=== PATIENT | male | born 1950 | race Caucasian/White ===

== ENCOUNTER → 2016-06-09 | Outpatient (CLI) | payer MEDICARE ==
--- NOTE | 2016-06-09 20:35 | PN ---
This patient is 65 who is coming in for a CPAP compliancy check. The patient was diagnosed having severe JAMES with an AHI of 52 and currently he is on CPAP pressure of 11 cm of water. The patient undergone a right knee surgery that was done by Dr. Chance Elizabeth and at one point there was some interruption of his CPAP therapy while the patient having his surgery. After being discharged home, the patient improved his compliance CPAP therapy, however, the segments that are sent from the CPAP machine has not been intercepted by the DME due to poor signal and poor transmission. As such, the patient has been constantly being called by DME that his use has been suboptimal. I did check the patient's CPAP machine, his compliancy data looks good. His CPAP use for more than 4 hours approaching 66%. He is averaging around 6.25 hours of CPAP use every night. His leak factor is 22 liters per minute; however, his AHI while on treatment is around 20 and I noted that the patient was still having some occasional hypopneas. Still while being treated on a CPAP pressure of 11 cm of water. Clinically the patient is doing much better. He reports marked improvement in his sleep quality and is waking up much more alert and awake during the day and he has no specific complaints. He has been switched from Simplus fullface mask to an air fit F10 mask. He has no other complaints otherwise for now. He wanted me to talk to his DME to make sure that they get data regarding his compliance. His [place] score is down to 2. BP is 160/94, pulse 60, respirations 16, temperature is 98.1. Weight is 305. [place] score is at 2, saturation 97% on room air. GENERAL APPEARANCE: Calm, comfortable. HEENT: Short neck, crowding posterior pharynx. There is no goiter, neck masses. LUNGS: Diminished breath sounds; otherwise clear. HEART: Sounds are regular rate and rhythm. Normal S1, S2. ABDOMEN: Soft, nontender, no organomegaly. EXTREMITIES: No edema. No cyanosis, or clubbing. IMPRESSION: 1. Severe symptomatic obstructive sleep apnea, apnea-hypopnea index of 52 with adequate compliancy while being on a CPAP pressure of 11 cm of water. Nevertheless, the patient has some residual hypopneas occurring while on CPAP pressure of 11 cm and the pressure needs to be increased further to optimize his treatment. 2. Status post right knee replacement. 3. Hypersomnia, improved. [place] score is down to 2. PLAN: 1. Increase in CPAP pressure of 12 cm of water. 2. Continue AirFit F10 fullface mask. 3. Encouraging increasing CPAP hours and use every night without any interruption. 4. One final check will be done in 4 months' time and the data will be forwarded to [facility] and the patient is adequate and he has been receiving adequate CPAP therapy for now.
== END | disposition home or self-care (01) ==
LOC: SLEEP 16:03
PROVIDERS: ATTEND Internal Medicine Critical Care Medicine
DX: G47.33 Obstructive sleep apnea (adult) (pediatric) (principal); G47.10 Hypersomnia, unspecified; Z96.651 Presence of right artificial knee joint; Z99.89 Dependence on other enabling machines and devices

== ENCOUNTER → 2016-10-06 | Outpatient (CLI) | payer MEDICARE ==
--- NOTE | 2016-10-07 06:08 | PN ---
This is a 66-year-old male patient who is coming in for a CPAP compliancy check. Note that the patient was diagnosed having severe JAMES with an AHI of 52 and he was initially placed on a CPAP pressure of 11 cm of water. The patient came in for a compliancy in May of 2016. At that time, the patient was having some residual apneas and his AHI was still around 20. He was compliant. He was seeing adequate benefit, however, the benefit was not complete. Based on all this, I increased the pressure up to 12 cm of water. On today's evaluation, the patient is much more compliant and his CPAP use for more than 4 hours is 100% and his average CPAP use is 10.9 hours per night and patient's AHI is down to 1.8. The patient is using an AirFit F10 full face mask. The patient has no complaints other than some chronic vertigo, which seems to be a benign positional vertigo. He is using an AirFit F10 full face mask. He is doing extremely well. No weight gain or weight loss. [place] score is down to 2. CURRENT VITALS: BP 170/92, pulse is 80, respirations 16, temperature 97.2 and saturation 96% on room air. Weight 325. Height is 6 feet 1 inch. BMI is 42.5. GENERAL APPEARANCE: Obese, calm, comfortable. HEENT: Short neck, crowding posterior pharynx. There is no goiter or neck masses. LUNGS: Diminished breath sounds bilaterally, otherwise, clear. HEART: Sounds regular rate and rhythm. Normal S1, S2. No S3. No murmurs. ABDOMEN: Soft, nontender. No organomegaly. EXTREMITIES: No edema. No cyanosis or clubbing. IMPRESSION: 1. Symptomatic obstructive sleep apnea, severe, with an AHI of 52. The patient is undergoing successful therapy with a CPAP pressure of 12 cm of water. 2. Hypersomnia, improved. 3. Benign positional vertigo. 4. Degenerative arthritis, status post right knee replacement. PLAN: 1. Continue CPAP therapy at the same level of pressure, which is 12 cm of water. 2. AirFit F10 full face mask. 3. Compliance data was reviewed and numbers look great, clinically improved. 4. The patient will see me back in followup in a years time or earlier if needed. CARL
== END ==
LOC: SLEEP 13:32
PROVIDERS: ATTEND Internal Medicine Critical Care Medicine
DX: G47.33 Obstructive sleep apnea (adult) (pediatric) (principal); G47.10 Hypersomnia, unspecified; M17.11 Unilateral primary osteoarthritis, right knee; Z96.651 Presence of right artificial knee joint

== ENCOUNTER → 2018-02-22 | Outpatient (CLI) | payer MEDICARE ==
--- NOTE | 2018-02-22 18:50 | PN ---
PROGRESS NOTE Herrera is 67, coming in for a followup regarding his JAMES treatment. Note that this patient was diagnosed having severe obstructive sleep apnea an AHI of 52. The patient has been on CPAP therapy at a pressure of 12 cm of water. Since his last evaluation the patient has gained further weight. He has gained approximately an additional 12 pounds. Note that since his time of diagnosis he is up by around pounds. Nevertheless, his treatment continues to be successful. He wears his CPAP every night at the pressure of 12. He is using the large full-face mask. His compliance indicates that he has been wearing his CPAP every night without any interruption. CPAP use for more than 4 hours is 100%. Leak factor is per minute. AHI is down to 7 while on treatment. He has no specific complaints. He continues to benefit from the treatment. REVIEW OF SYSTEMS: Twelve-point review of systems was done. Positive findings were all mentioned above in the history of present illness. PHYSICAL EXAMINATION: BP is 179/87, pulse GENERAL APPEARANCE: Calm, comfortable. NECK: Short, supple. No goiter or masses. LUNGS: HEART: Heart sounds are regular rate and rhythm. Normal S1, S2. No S3, S4. No murmurs. ABDOMEN: Soft, non-tender. No organomegaly. NEUROLOGIC: Alert and oriented x3. No focal neurological deficits. IMPRESSION: 1. Severe obstructive sleep apnea; apnea/hypopnea index of 52, currently on CPAP at a pressure of 12. 2. Obesity with interval weight gain. BMI is up to 47 with a weight of 337. 3. Hypersomnia, recovered while on CPAP therapy. The patient continues to be successfully treated, and his [place] score is down to 1. 4. Benign positional vertigo. 5. Degenerative arthritis. PLAN: 1. Keep CPAP at the same level of pressure of 12 with the intention of raising the pressure if he develops any snoring or hypersomnia in the future. 2. Encourage weight loss. 3. Keep the same mask interface, which is an AirFit F10 full-face mask. 4. Compliance was checked. See me back in a year's time in followup, earlier if needed. 5. Treatment continues to be successful. MMODL / IJN: [id number] /
== END | disposition home or self-care (01) ==
LOC: SLEEP 15:31
PROVIDERS: ATTEND Internal Medicine Critical Care Medicine
DX: G47.33 Obstructive sleep apnea (adult) (pediatric) (principal); E66.9 Obesity, unspecified; M19.90 Unspecified osteoarthritis, unspecified site; H81.10 Benign paroxysmal vertigo, unspecified ear; Z68.42 Body mass index [BMI] 45.0-49.9, adult; Z99.89 Dependence on other enabling machines and devices

== ENCOUNTER → 2018-03-30 | Outpatient (CLI) | payer MEDICARE ==
--- NOTE | 2018-03-31 07:23 | US ---
EXAMINATION TYPE: US abdomen comp/pelvis limited DATE OF EXAM: 03/30/2018 COMPARISON: NONE CLINICAL HISTORY: R31.9 Hematuria, N20.2 Calculus of Kidney. Right pelvic kidney. Hematuria. RUQ pa in. EXAM MEASUREMENTS: Liver Length: 18.4 cm Gallbladder Wall: 0.2 cm CHD: 0.5 cm Spleen: 9.4 cm Right Kidney: 8.7 x 3.6 x 4.1 cm Left Kidney: 12.4 x 4.9 x 5.7 cm Limited exam due to patient body habitus Pancreas: Tail not well visualized. Liver: Appears course and echogenic. Slightly enlarged in size. Gallbladder: wnl CBD: Obscured by overlying bowel gas CHD: wnl Spleen: wnl Right Kidney: Pelvic kidney. Appears small in size and appears rotated. Lower pole echogenic focus with shadow - 1.6 x 1.3 cm. Hydronephrosis seen. Left Kidney: Cystic appearing lesion seen in lower pole sinus - 1.9 x 1.9 x 1.7 cm Upper IVC: wnl Abd Aorta: proximal not visualized due to overlying bowel gas Bladder: distended, wnl Bilateral Jets Seen IMPRESSION: 1. Mild right hydronephrosis and 1.6 cm right renal calculus appearing to be located within a major c roselyn or proximal renal pelvis. 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 2. Probable renal sinus cyst measuring 1.9 cm. 3. Suboptimal exam due to patient body habitus with obscuration of the majority of the pancreas, prox imal aspect of the abdominal aorta, and common bile duct. Common hepatic duct is within normal limits . 4. Findings suggest mild degree hepatic steatosis. Correlate with liver function tests.
== END | disposition home or self-care (01) ==
LOC: RADUSWWP 15:28
PROVIDERS: ATTEND Family Medicine
DX: N13.2 Hydronephrosis with renal and ureteral calculous obstruction (principal)
CPT/HCPCS: 76700; 76857

== ENCOUNTER → 2018-05-04 | Outpatient (CLI) | payer MEDICARE ==
--- NOTE | 2018-05-04 17:02 | CT ---
EXAMINATION TYPE: CT abdomen pelvis wo con DATE OF EXAM: 05/04/2018 COMPARISON: Ultrasound abdomen 03/30/2018 INDICATION: Right flank pain. History of renal stones. DLP: 1192 mGycm, Automated exposure control for dose reduction was used. CONTRAST: None Study performed without Oral Contrast TECHNIQUE: Axial images were obtained from above the diaphragm to the pubic rami in the axial plane a t 5 mm thick sections. Reconstructed images are reviewed on the computer in the coronal plane. FINDINGS: Limited CT sections are obtained the lung bases. The lung bases are clear. CT ABDOMEN: Liver: There is moderate fatty infiltration throughout the liver. Spleen: Normal Pancreas: Normal Adrenal glands: The adrenal glands are normal. Gallbladder: Normal Kidneys: Left kidney: No masses are evident. No hydronephrosis is present. No cysts are present. Right kidney: Right kidney resides within the anterior right hemipelvis and is malpositioning malrota tion. There is a 1.3 cm calcification without obstruction within the right kidney. Aorta: Vascular calcification is within the aorta. Inferior vena cava: Normal. CT PELVIS: Fat-containing left inguinal hernia may be present. Loops of bowel within the abdomen and pelvis are normal. Study is performed without oral contrast limiting bowel evaluation. Appendix: Normal as visualized. Urinary bladder: Decompressed with limited evaluation. Genitourinary structures: Prostate is slightly prominent with scattered calcifications. Osseous structures: No suspicious lytic or sclerotic lesions. IMPRESSIONS: 1. Malpositioned right kidney within the right hemipelvis containing a nonobstructing 1.3 cm calcifi cation. 2. Left inguinal fat-containing hernia. 3. Moderate fatty infiltration to the liver.
== END | disposition home or self-care (01) ==
LOC: RADCTMAIN 14:07
PROVIDERS: ATTEND Urology
DX: N28.89 Other specified disorders of kidney and ureter (principal); I70.0 Atherosclerosis of aorta; K40.90 Unilateral inguinal hernia, without obstruction or gangrene, not specified as recurrent; R31.1 Benign essential microscopic hematuria; K76.0 Fatty (change of) liver, not elsewhere classified; Z87.442 Personal history of urinary calculi
CPT/HCPCS: 74176

== ENCOUNTER 2019-01-24 06:40 | Day surgery (SDC) | payer MEDICARE ==
[2019-01-20 11:36] VITALS: BMI 42.8
[~2019-01-24 06:40] MED LIST: LACTATED RINGERS 1,000 ML IV SCH; LIDOCAINE 1% 20 ML VIAL (10MG/ML) FOR IV START INTRADERMA PRN
[2019-01-24 07:17] VITALS: TEMP 98
[2019-01-24] MEDS ORDERED: PROPOFOL 10 MG/ML 20 ML VIAL IV ONE (07:34)
--- NOTE | 2019-01-24 08:03 | P.PCN ---
Date of Procedure: 01/24/19 Description of Procedure: BRIEF HISTORY: Patient is a 68-year-old pleasant male scheduled for an elective colonoscopy as a part of screening for malignant neoplasm colon. Patient reports prior colonoscopies at the age of 48 and also please 58 which she states were normal. His recollection. He denies any change in his bowel habits, blood per rectum, abdominal pain or family history of colon cancer. PROCEDURE PERFORMED: Colonoscopy with polypectomy. PREOPERATIVE DIAGNOSIS: Screening for malignant neoplasm colon, last colonoscopy 10 years ago per his recollection and normal. ESTIMATED BLOOD LOSS: Minimal. IV sedation per Anesthesia. PROCEDURE: After informed consent was obtained, the patient, was brought into the endoscopy unit. IV sedation was administered by Anesthesia under continuous monitoring. Digital rectal examination was normal. Initially the Olympus CF-190 flexible video colonoscope was then inserted in the rectum, gradually advanced into the cecum without any difficulty. Careful examination was performed as the scope was gradually being withdrawn. Ileocecal valve and the appendiceal orifice were visualized and appeared normal. Prep was excellent. Mucosa of the cecum, ascending colon, transverse colon, descending colon, sigmoid colon, and rectum appeared normal. One diminutive 2 mm polyp removed from the ascending colon with cold forcep polypectomy. One diminutive 1 mm rectal polyp removed with cold forcep polypectomy. A few small sigmoid diverticula noted. Retroflexion was performed in the rectum and no lesions were seen. The patient tolerated the procedure well. IMPRESSION: 2 diminutive polyps one from the ascending colon and one from the rectum removed with cold forcep polypectomy. Mild sigmoid diverticulosis. Normal-appearing colon from rectum to cecum. RECOMMENDATIONS: Findings of this examination were discussed with the patient and his . Okay to resume diet. Okay to resume medications. Await pathology from polypectomies. Anticipate repeat colonoscopy in 5 years pending pathology from polypectomies.
[2019-01-24 08:04] VITALS: RESP 18
[2019-01-24 08:20] VITALS: BP 134/76; PULSE 76
== END 2019-01-24 08:33 | disposition home or self-care (01) ==
LOC: ORWHC2ENDO 06:40
PROVIDERS: ATTEND Internal Medicine
DX: Z12.11 Encounter for screening for malignant neoplasm of colon (principal); D12.2 Benign neoplasm of ascending colon; K62.1 Rectal polyp; K57.30 Diverticulosis of large intestine without perforation or abscess without bleeding; I10 Essential (primary) hypertension; G47.33 Obstructive sleep apnea (adult) (pediatric); K21.9 Gastro-esophageal reflux disease without esophagitis; Z88.8 Allergy status to other drugs, medicaments and biological substances; Z79.899 Other long term (current) drug therapy; Z96.651 Presence of right artificial knee joint; Z90.89 Acquired absence of other organs; Z98.890 Other specified postprocedural states; Z87.891 Personal history of nicotine dependence; Z87.81 Personal history of (healed) traumatic fracture
CPT/HCPCS: 88305; 45380; J2704

== ENCOUNTER → 2019-01-31 | Outpatient (CLI) | payer MEDICARE ==
--- NOTE | 2019-01-31 19:33 | PN ---
PROGRESS NOTE Herrera is 68 with severe JAMES with an AHI of 52, currently on CPAP pressure of 12, and the patient is using an AirTouch F20 large-size full-face mask. He continues to benefit from the treatment. His treatment is extremity successful. His AHI is down to 4.2 while on treatment, and based on the compliance data, the patient has been averaging around 11.7 hours of CPAP use per night with a leak of 8 L/minute, and his CPAP use for more than 4 hours is 100%. His [place] score is 0. REVIEW OF SYSTEMS: Fourteen-point review of systems was done. Positive findings were all mentioned above in the history of present illness. PHYSICAL EXAMINATION: VITAL SIGNS: His current vitals are BP 160/80, pulse 51, respirations 16, temperature 97.4, saturation 93% on room air. Height is 6 feet 0 inches. Weight is 328 pounds. [place] score is 0. BMI is 44.4. GENERAL APPEARANCE: Calm, comfortable. HEAD: Atraumatic, normocephalic. NECK: Supple. No JVD. No goiter or neck masses. LUNGS: Clear to auscultation. HEART: Heart sounds are regular rate and rhythm. Normal S1, S2. No S3, S4. No murmurs. ABDOMEN: Soft, nontender. No organomegaly. EXTREMITIES: No edema. No cyanosis or clubbing. NEUROLOGIC: Awake and alert. There are no focal neurological deficits. PSYCHIATRIC: Negative for anxiety or depression. IMPRESSION: 1. Severe obstructive sleep apnea with an apnea/hypopnea index of 52, currently on CPAP pressure of 12. The patient continues to be extremely successful with his treatment. No need for any further adjustment at this point in time. 2. Obesity. 3. Hypersomnia, improved. 4. Benign prostatic hypertrophy. 5. Degenerative arthritis. PLAN: 1. Encourage weight loss. 2. Continue CPAP therapy at the same level of pressure, which is 12. 3. Keep the same mask interface, which is an AirTouch large size. 4. See me back in a year's time in followup, earlier if needed. MMODL / IJN: [id number] /
== END | disposition home or self-care (01) ==
LOC: SLEEP 14:06
PROVIDERS: ATTEND Internal Medicine Critical Care Medicine
DX: G47.33 Obstructive sleep apnea (adult) (pediatric) (principal); E66.9 Obesity, unspecified; N40.0 Benign prostatic hyperplasia without lower urinary tract symptoms; M19.90 Unspecified osteoarthritis, unspecified site; Z68.41 Body mass index [BMI] 40.0-44.9, adult

== ENCOUNTER → 2019-05-05 | Outpatient (CLI) | payer MEDICARE ==
--- NOTE | 2019-05-06 18:43 | XR ---
EXAMINATION TYPE: XR thoracic spine complete DATE OF EXAM: 05/05/2019 CLINICAL HISTORY: Mid back pain with no known injury TECHNIQUE: Frontal, lateral, and swimmer's view of thoracic spine are obtained. COMPARISON: None. FINDINGS: Thoracic spine show satisfactory alignment without evidence of acute fracture or dislocatio n. Bridging anterior osteophytes are seen of the midthoracic spine with smaller osteophytes of the l ower thoracic spine. Vertebral body heights and disc space heights are preserved. Visualized ribs are unremarkable. Cervical fusion device is visualized. IMPRESSION: No acute fracture or dislocation is seen in the thoracic spine. Moderate degenerative di sc disease of the lumbar spine as there are bridging anterior osteophytes.
== END | disposition home or self-care (01) ==
LOC: RAD 16:16
PROVIDERS: ATTEND Family Medicine
DX: M51.36 Other intervertebral disc degeneration, lumbar region (principal)
CPT/HCPCS: 72072

== ENCOUNTER → 2019-10-09 | Outpatient (CLI) | payer MEDICARE ==
--- NOTE | 2019-10-09 14:31 | P.HPBAR ---
Bariatric H&P - History & Physicial H&P Date: 10/09/19 History & Physicial: Visit/CC: Patient initial contact: Initial weight: Initial weight in pounds: Height: Initial BMI: Last weight: Current weight: Current weight in pounds: 365 Current BMI: [place] body weight (based on NIH guidelines): Excess body weight loss: The patient is a 69 year-old M who presents for Bariatric Assessment. Patient presents today for presurgical consultation. Past Medical History Past Medical History: Hypertension, Renal Disease, Sleep Apnea/CPAP/BIPAP Additional Past Medical History / Comment(s): Currently has cast on left hand due to middle finger fracture. Uses CPAP. Hx kidney stone. 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 Past Anesthesia/Blood Transfusion Reactions: No Reported Reaction Past Psychological History: Anxiety Smoking Status: Former smoker Past Alcohol Use History: None Reported Additional Past Alcohol Use History / Comment(s): Quit smoking 32 years ago. Past Drug Use History: None Reported - Past Family History Sister(s) Family Medical History: Cancer Additional Family Medical History / Comment(s): Breast cancer. Surgical - Exam - General well developed, well nourished, no distress - Eyes PERRL - ENT normal pinna - Neck no masses - Respiratory normal expansion - Cardiovascular Rhythm: regular - Abdomen Abdomen: soft, non tender Bariatric Assessment & Plan Plan: RBC. Patient is an excellent understanding sleeve gastrectomy. We went over the risks and benefits of procedure including injury to the stomach, liver and spleen. She is also aware the risk of gastric staple line bleeding, scarring in perforation. The patient will be scheduled for EGD. He'll follow-up after this has been performed. Bariatric Checklist Checklist: Plan: Checklist: EGD: 1. Hiatal hernia: 2. H. Pylori: HgbA1c: Vitamin D: Smoking: Former smoker Primary care physician referral: Psychiatry clearance: Cardiology clearance: Sleep study: Diet journal: VTE risk score: VTE risk level: Rehab needs at discharge:
[2019-10-09 15:58] LABS: HCT 45.1 % (39.0-53.0); HGB 14.9 gm/dL (13.0-17.5); MCH 34.9 pg (25.0-35.0); MCHC 33.1 g/dL (31.0-37.0); MCV 105.6 fL (80.0-100.0); Macrocytosis Moderate; Mean Platelet Volume 8.2; Platelet Count 171 k/uL (150-450); RBC 4.27 m/uL (4.30-5.90); RDW 13.9 % (11.5-15.5); WBC 7.4 k/uL (3.8-10.6)
[2019-10-10 01:17] LABS: Hemoglobin A1C 6.2 % (4.0-6.0)
[2019-10-10 02:15] LABS: ALT 92 U/L (10-49); AST 76 U/L (14-35); African American GFR (CKD) 77.9 (60.0-200.0); Albumin/Globulin Ratio 1.33 (1.60-3.17); Alkaline Phosphatase 75 U/L (41-126); BUN/Creat Ratio 17.27 Ratio (12.00-20.00); Calcium 9.2 mg/dL (8.7-10.3); Carbon Dioxide 25.9 mmol/L (21.6-31.8); Chloride 106 mmol/L (96-109); Folate, Serum >24.0 ng/mL; Glucose 110 mg/dL (70-110); Non-African American GFR(CKD) 67.2 (60.0-200.0); Potassium 5.4 mmol/L (3.5-5.5); Sodium 141 mmol/L (135-145); Total Bilirubin 0.5 mg/dL (0.2-1.2)
[2019-10-12 08:46] VITALS: BP 176/99; PULSE 57; TEMP 97.7; BMI 34.9
== END | disposition home or self-care (01) ==
LOC: BARWHC3 13:55
PROVIDERS: ATTEND Surgery
DX: Z01.812 Encounter for preprocedural laboratory examination (principal); E88.81 Metabolic syndrome and other insulin resistance; E55.9 Vitamin D deficiency, unspecified
CPT/HCPCS: 84425; 80053; 82607; 82746; 85027; 82306; 83036; 93005; 36415; G0463; 99211

== ENCOUNTER → 2019-11-03 | Day surgery (SDC) | payer MEDICARE ==
[2019-11-01 14:50] VITALS: BMI 47.5
[~2019-11-03] MED LIST changes: +KETAMINE 10 MG/ML 20 ML VIAL ONE; +LACTATED RINGERS 1,000 ML IV ONE; +LIDOCAINE 1% (10MG/ML) FOR IV START INTRADERMA PRN; -LIDOCAINE 1% 20 ML VIAL (10MG/ML) FOR IV START INTRADERMA PRN; +LIDOCAINE 1% INJ 10MG/ML (20 ML MDV) ONE; +PROPOFOL 10 MG/ML 20 ML VIAL IV ONE
[2019-11-03 13:02] VITALS: TEMP 97.3
--- NOTE | 2019-11-03 13:48 | P.GSHP ---
History of Present Illness H&P Date: 11/03/19 Chief Complaint: GERD This is a 69-year-old male presents today for EGD. Patient being worked up for sleeve gastrectomy. He's had issues with GERD. Past Medical History Past Medical History: Hypertension, Renal Disease, Sleep Apnea/CPAP/BIPAP Additional Past Medical History / Comment(s): Uses CPAP. Hx kidney stone. 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 RT CTR, RT ELBOW RELEASE Past Anesthesia/Blood Transfusion Reactions: No Reported Reaction Smoking Status: Former smoker - Past Family History Sister(s) Family Medical History: Cancer, Myocardial Infarction ([place]) Additional Family Medical History / Comment(s): Breast cancer. Medications and Allergies Home Medications Medication Instructions Recorded Confirmed Type Levocetirizine Dihydrochloride 5 mg PO HS 02/10/18 11/03/19 History [Xyzal] Losartan [Cozaar] 100 mg PO HS 02/10/18 11/03/19 History Metoprolol Succinate [Toprol Xl] 100 mg PO HS 02/10/18 11/03/19 History buPROPion HCL [Wellbutrin XL] 300 mg PO QAM 02/10/18 11/03/19 History Gabapentin [Neurontin] 300 mg PO BID 01/20/19 11/03/19 History Alpha Lipoic Acid 150 mg PO DAILY 10/16/19 11/03/19 History Ascorbic Acid [Vitamin C with Mariaelena 500 mg PO DAILY 10/16/19 11/03/19 History Hips] Aspirin 81 mg PO DAILY 10/16/19 11/03/19 History Ergocalciferol (Vitamin D2) 5,000 mg PO DAILY 10/16/19 11/03/19 History [Vitamin D2] Glucosamine/MSM/Chrond/D3/Bosw 1 tab PO DAILY 10/16/19 11/03/19 History [Qapakgzsbwm-Vravma-KQF-D3 Cplt] Lutein 40 mg PO DAILY 10/16/19 11/03/19 History Multivitamins, Thera [Multivitamin 1 tab PO DAILY 10/16/19 11/03/19 History (formulary)] Dum[place]-3 Fatty Acids/Fish Oil 1 tab PO DAILY 10/16/19 11/03/19 History [[place]-3 Fish Oil 1,200 mg Sfgl] Turmeric Root Extract [Turmeric] 500 mg PO DAILY 10/16/19 11/03/19 History Ubidecarenone [Co Q-10] 100 mg PO DAILY 10/16/19 11/03/19 History Vitamin B Complex 1 tab PO DAILY 10/16/19 11/03/19 History Allergies Allergy/AdvReac Type Severity Reaction Status Date / Time baclofen Allergy Nausea Verified 11/03/19 12:58 Surgical - Exam Vital Signs Temp Pulse Resp BP Pulse Ox 97.3 F L 59 L 16 207/86 94 L 11/03/19 13:01 11/03/19 13:01 11/03/19 13:01 11/03/19 13:01 11/03/19 13:01 - General well developed, well nourished, no distress - Eyes PERRL - ENT normal pinna - Neck no masses - Respiratory normal expansion - Cardiovascular Rhythm: regular - Abdomen Abdomen: soft, non tender Assessment and Plan Assessment: GERD. We'll perform EGD.
--- NOTE | 2019-11-03 13:57 | P.OP ---
Date of Procedure: 11/03/19 Preoperative Diagnosis: Morbid obesity GERD Postoperative Diagnosis: Antral gastritis Procedure(s) Performed: EGD Anesthesia: MAC Surgeon: Isaiah Henley Pathology: other (Antrum) Condition: stable Disposition: PACU Description of Procedure: The patient's placed on the endoscopy table in the lateral position. He received IV sedation. The gastroscope placed oropharynx passed in the esophagus and stomach. Scope was then placed through the pylorus. The first and second portion of the duodenum appeared normal. Scope was then brought back the antrum this. Mildly inflamed. A biopsies performed. Scope was unretroflexed and remainder some appeared normal. The GE junction was at 40 cm the distal esophagus appeared normal. The proximal esophagus. Normal. Scope withdrawn for patient.
[2019-11-03 14:07] VITALS: BP 141/74; PULSE 54; RESP 17
== END ==
LOC: ORWHC2ENDO 11:47
PROVIDERS: ATTEND Surgery
DX: K29.50 Unspecified chronic gastritis without bleeding (principal); K21.9 Gastro-esophageal reflux disease without esophagitis; E66.01 Morbid (severe) obesity due to excess calories; Z68.42 Body mass index [BMI] 45.0-49.9, adult; I12.9 Hypertensive chronic kidney disease with stage 1 through stage 4 chronic kidney disease, or unspecified chronic kidney disease; N18.9 Chronic kidney disease, unspecified; G47.33 Obstructive sleep apnea (adult) (pediatric); Z99.89 Dependence on other enabling machines and devices; Z87.442 Personal history of urinary calculi; Q63.2 Ectopic kidney; Z96.651 Presence of right artificial knee joint; Z98.1 Arthrodesis status; Z98.890 Other specified postprocedural states; Z87.891 Personal history of nicotine dependence; Z82.49 Family history of ischemic heart disease and other diseases of the circulatory system; Z80.3 Family history of malignant neoplasm of breast; Z79.82 Long term (current) use of aspirin; Z79.899 Other long term (current) drug therapy; Z88.8 Allergy status to other drugs, medicaments and biological substances
CPT/HCPCS: 88305; 43239; J2001; J2704

== ENCOUNTER → 2019-11-06 | Outpatient (CLI) | payer MEDICARE ==
[2019-11-06 12:54] VITALS: BMI 48.4
== END | disposition home or self-care (01) ==
LOC: BARWHC3 08:43
PROVIDERS: ATTEND Surgery
DX: Z13.21 Encounter for screening for nutritional disorder (principal); Z71.3 Dietary counseling and surveillance
CPT/HCPCS: 97804

== ENCOUNTER → 2019-11-20 | Outpatient (CLI) | payer MEDICARE ==
[2019-11-20 13:25] VITALS: BP 184/78; PULSE 65; RESP 20; TEMP 98.2; BMI 48.5
--- NOTE | 2019-11-20 14:33 | P.HPBAR ---
Bariatric H&P - History & Physicial H&P Date: 11/20/19 History & Physicial: Visit/CC: new patient; sleeve Patient initial contact: Initial weight: Initial weight in pounds: Height: 6 ft 1 in Initial BMI: Last weight: Current weight: 166.922 kg Current weight in pounds: 368.00 Current BMI: 48.5 [place] body weight (based on NIH guidelines): 83.461 kg Excess body weight loss: The patient is a 69 year-old M who presents for Bariatric Assessment. Patient rents today for presurgical consultation. Patient has been morbidly obese for a long time. His current BMI is 49. Past Medical History Past Medical History: Hypertension, Renal Disease, Sleep Apnea/CPAP/BIPAP Additional Past Medical History / Comment(s): Uses CPAP. Hx kidney stone. 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 RT CTR, RT ELBOW RELEASE Past Anesthesia/Blood Transfusion Reactions: No Reported Reaction Past Psychological History: Depression Smoking Status: Former smoker Past Alcohol Use History: None Reported Additional Past Alcohol Use History / Comment(s): Quit smoking 1986 Past Drug Use History: None Reported - Past Family History Sister(s) Family Medical History: Cancer, Myocardial Infarction ([place]) Additional Family Medical History / Comment(s): Breast cancer. Surgical - Exam Vital Signs Temp Pulse Resp BP Pulse Ox 98.2 F 65 20 184/78 97 11/20/19 13:13 11/20/19 13:13 11/20/19 13:13 11/20/19 13:13 11/20/19 13:13 - General well developed, well nourished, no distress - Eyes PERRL - ENT normal pinna - Neck no masses - Respiratory normal expansion - Cardiovascular Rhythm: regular - Abdomen Abdomen: soft, non tender Bariatric Assessment & Plan Plan: RBC patient BMI is 49. Patient has excellent understanding sleeve gastrectomy. He'll be scheduled E. He'll follow-up afterwards performed. Bariatric Checklist Checklist: Plan: Checklist: EGD: 1. Hiatal hernia: 2. H. Pylori: HgbA1c: Vitamin D: Smoking: Former smoker Primary care physician referral: Dr Cifuentes Psychiatry clearance: Cardiology clearance: Sleep study: Diet journal: VTE risk score: VTE risk level: Rehab needs at discharge:
== END | disposition home or self-care (01) ==
LOC: BARWHC3 12:53
PROVIDERS: ATTEND Surgery
DX: E66.01 Morbid (severe) obesity due to excess calories (principal); Z68.42 Body mass index [BMI] 45.0-49.9, adult; Z99.89 Dependence on other enabling machines and devices; Z87.891 Personal history of nicotine dependence
CPT/HCPCS: 99211

== ENCOUNTER → 2019-11-23 | Outpatient (CLI) | payer MEDICARE ==
[2019-11-23 16:54] LABS: Basophils % (A) 1 %; Eosinophils # (A) 0.1 k/uL (0-0.7); Eosinophils % (A) 2 %; HCT 48.1 % (39.0-53.0); HGB 15.6 gm/dL (13.0-17.5); Lymphocytes # (A) 1.9 k/uL (1.0-4.8); Lymphocytes % (A) 25 %; MCHC 32.5 g/dL (31.0-37.0); MCV 104.4 fL (80.0-100.0); Macrocytosis Slight; Mean Platelet Volume 8.5; Monocytes # (A) 0.6 k/uL (0-1.0); Monocytes % (A) 8 %; Neutrophils # (A) 4.8 k/uL (1.3-7.7); Neutrophils % (A) 63 %; Platelet Count 191 k/uL (150-450); RBC 4.61 m/uL (4.30-5.90); RDW 13.2 % (11.5-15.5); WBC 7.7 k/uL (3.8-10.6)
[2019-11-23 17:10] LABS: ALT 82 U/L (4-49); AST 74 U/L (17-59); African American GFR (CKD) >90 (>60 ml/min/1.73 sqM); Albumin 4.3 g/dL (3.5-5.0); Alkaline Phosphatase 97 U/L (38-126); Anion Gap 10 mmol/L; Blood Urea Nitrogen 19 mg/dL (9-20); Calcium 9.1 mg/dL (8.4-10.2); Carbon Dioxide 21 mmol/L (22-30); Chloride 107 mmol/L (98-107); Glucose 110 mg/dL (74-99); Non-African American GFR(CKD) 87 (>60 ml/min/1.73 sqM); Potassium 4.8 mmol/L (3.5-5.1); Sodium 138 mmol/L (137-145); Total Bilirubin 0.5 mg/dL (0.2-1.3); Total Protein 7.8 g/dL (6.3-8.2)
== END | disposition home or self-care (01) ==
LOC: LABPAT 15:47
PROVIDERS: ATTEND Surgery
DX: Z01.818 Encounter for other preprocedural examination (principal)
CPT/HCPCS: 36415; 80053; 85025

== ENCOUNTER 2019-12-12 08:50 | Inpatient (IN) | payer MEDICARE ==
[~2019-12-12 08:50] MED LIST changes: +DEXAMETHASONE SOD PHOSPHATE 10 MG/ML 1 ML VIAL IV ONE; +ENOXAPARIN 40 MG/0.4 ML SYRINGE SQ ONE; -KETAMINE 10 MG/ML 20 ML VIAL ONE; -LACTATED RINGERS 1,000 ML IV ONE; -LACTATED RINGERS 1,000 ML IV SCH; -LIDOCAINE 1% (10MG/ML) FOR IV START INTRADERMA PRN; -LIDOCAINE 1% INJ 10MG/ML (20 ML MDV) ONE; +MIDAZOLAM 2 MG/2 ML VIAL IV PRN; +ONDANSETRON 4 MG/2 ML VIAL IVP ONE; -PROPOFOL 10 MG/ML 20 ML VIAL IV ONE; +ceFAZolin 3 GM in SODIUM CHLORIDE 0.9% 100 ML IVPB ONE
[2019-12-12] MEDS: LACTATED RINGERS 1,000 ML IV SCH (10:43)
--- NOTE | 2019-12-12 11:48 | P.GSHP ---
History of Present Illness H&P Date: 12/12/19 Chief Complaint: Morbid obesity, BMI 46 Is a 69-year-old male presents today for laparoscopic sleeve gastric. Patient has been morbidly obese. Patient has developed severe comorbidities with morbid. Patient reversed surgery including conversion to the open procedure injury to the stomach liver spleen. He is where the risk of gastric staple line bleeding, scarring or disruption. Past Medical History Past Medical History: Hypertension, Renal Disease, Sleep Apnea/CPAP/BIPAP Additional Past Medical History / Comment(s): Uses CPAP. Hx kidney stone. 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 RT CTR, RT ELBOW RELEASE Past Anesthesia/Blood Transfusion Reactions: No Reported Reaction Smoking Status: Former smoker - Past Family History Sister(s) Family Medical History: Cancer, Myocardial Infarction ([place]) Additional Family Medical History / Comment(s): Breast cancer. Medications and Allergies Home Medications Medication Instructions Recorded Confirmed Type Levocetirizine Dihydrochloride 5 mg PO HS 02/10/18 12/07/19 History [Xyzal] Losartan [Cozaar] 100 mg PO HS 02/10/18 12/07/19 History Metoprolol Succinate [Toprol Xl] 100 mg PO HS 02/10/18 12/07/19 History buPROPion HCL [Wellbutrin XL] 300 mg PO QA 02/10/18 12/07/19 History Gabapentin [Neurontin] 300 mg PO DAILY 01/20/19 12/07/19 History Alpha Lipoic Acid 150 mg PO DAILY 10/16/19 12/07/19 History Ascorbic Acid [Vitamin C with Mariaelena 1,000 mg PO DAILY 10/16/19 12/07/19 History Hips] Aspirin 81 mg PO DAILY 10/16/19 12/07/19 History Ergocalciferol (Vitamin D2) 5,000 mg PO DAILY 10/16/19 12/07/19 History [Vitamin D2] Glucosamine/MSM/Chrond/D3/Bosw 1 tab PO DAILY 10/16/19 12/07/19 History [Hiewzzsdcor-Jptdal-AWX-D3 Cplt] Lutein 40 mg PO DAILY 10/16/19 12/07/19 History Multivitamins, Thera [Multivitamin 1 tab PO DAILY 10/16/19 12/07/19 History (formulary)] [place]-3 Fatty Acids/Fish Oil 1 tab PO DAILY 10/16/19 12/07/19 History [[place]-3 Fish Oil 1,200 mg Sfgl] Turmeric Root Extract [Turmeric] 500 mg PO DAILY 10/16/19 12/07/19 History Ubidecarenone [Co Q-10] 100 mg PO DAILY 10/16/19 12/07/19 History Vitamin B Complex 1 tab PO DAILY 10/16/19 12/07/19 History Gabapentin [Neurontin] 600 mg PO HS 12/07/19 12/07/19 History Vitamin B Complex 1 each PO DAILY 12/07/19 12/07/19 History Allergies Allergy/AdvReac Type Severity Reaction Status Date / Time baclofen Allergy Nausea Verified 12/12/19 10:29 Surgical - Exam Vital Signs Temp Pulse Resp BP Pulse Ox 97.7 F 49 L 16 148/69 94 L 12/12/19 10:32 12/12/19 10:32 12/12/19 10:32 12/12/19 10:32 12/12/19 10:32 - General well developed, well nourished, no distress - Eyes PERRL - ENT normal pinna - Neck no masses - Respiratory normal expansion - Cardiovascular Rhythm: regular - Abdomen Abdomen: soft, non tender Assessment and Plan Assessment: RBC. We'll perform laparoscopic sleeve gastrectomy.
[2019-12-12] MEDS ORDERED: METHYLENE BLUE 10 MG/ML (10 ML VIAL) ONE (12:01)
[2019-12-12] MEDS ORDERED: MIDAZOLAM 2 MG/2 ML VIAL ONE (12:01)
[2019-12-12] MEDS ORDERED: fentaNYL (PF) 50 MCG/ML 2 ML AMP ONE (12:01)
[2019-12-12] MEDS ORDERED: NEOSTIGMINE 1 MG/ML 10 ML VIAL ONE (12:01)
[2019-12-12] MEDS ORDERED: PROPOFOL 10 MG/ML 20 ML VIAL IV ONE (12:01)
[2019-12-12] MEDS ORDERED: SUCCINYLCHOLINE CHLORIDE VIAL 200 MG/10 ML VIAL IV ONE (12:01)
[2019-12-12] MEDS ORDERED: ROCURONIUM BROMIDE 10 MG/ML 5 ML VIAL IV ONE (12:01)
[2019-12-12] MEDS ORDERED: GLYCOPYRROLATE 0.2 MG/ML 2 ML VIAL ONE (12:01)
[2019-12-12] MEDS ORDERED: BUPIVACAINE (PF) 0.5% 30 ML VIAL SQ ONE (12:31)
--- NOTE | 2019-12-12 13:09 | P.OP ---
Date of Procedure: 12/12/19 Preoperative Diagnosis: Morbid obesity, BMI 46 Postoperative Diagnosis: Morbid obesity, BMI 46 Procedure(s) Performed: Laparoscopic sleeve gastrectomy Anesthesia: MARGY Surgeon: Isaiah Henley Estimated Blood Loss (ml): 5 Pathology: other (Stomach) Condition: stable Disposition: PACU Description of Procedure: GasThe patient was placed on the operating room table in the supine position. She received general anesthesia and then was placed in dorsal lithotomy p osition. Her abdomen was prepped and draped in sterile fashion. The skin incision sites were anesthetized 1% local Xylocaine. And then the skin was incised with an 11 blade in the left lateral position. Using a blade less trocar under direct visualization the peritoneal cavity was entered. The abdomen was insufflated and then a 5 mm laparoscope was placed into the peritoneal cavity. A 5 mm trocar was placed in the right epigastric, and right lateral position. A 15 mm trocar was placed in the supra-umbilical position and another 5 mm trocar was placed in the left lateral position. The left lateral lobe of the liver was retracted. The stomach was visualized. The greater curvature of the stomach was then dissected using the Harmonic scissors. The dissection occurred approximately 5 cm from the pylorus to the level of the left senait. There was no hiatal hernia seen. At this point a 40-Maori bougie dilator was placed the oropharynx and passed into the esophagus and into the sto mach by the GAME BIRD FARMER. The sleeve gastrectomy was performed by using the powered echelon stapler with a seam guard buttress material. Sequential firings of the stapler were performed. The gastric remnant was then brought out through the 15 mm trocar site. The dilator was withdrawn. And a orogastric tube was replaced into the stomach. The stomach was insufflated with 200 mL of methylene blue normal saline. There was no evidence of extravasation. The abdomen was irrigated there is no bleeding seen. The Raj-Volodymyr device was used to close the 15 mm trocar with 0 Vicryl. Skin was closed with interrupted 3-0 Monocryl sutures once the trochars withdrawn. Dermabond dressing was applied. Patient was sent to recovery in stable condition.
[2019-12-12] MEDS ORDERED: HYOSCYAMINE ORAL DROPS 1.875 MG/15 ML BOTTLE PO PRN (13:11)
[2019-12-12] MEDS ORDERED: NALOXONE 0.4 MG/ML 1 ML VIAL IV PRN (13:11)
[2019-12-12] MEDS ORDERED: diphenhydrAMINE 50 MG/ML 1 ML VIAL IVP PRN (13:11)
[2019-12-12] MEDS ORDERED: SIMETHICONE 40 MG/0.6 ML DROPS 2,000 MG/30 ML BOTTLE PO PRN (13:11)
[2019-12-12] MEDS ORDERED: ONDANSETRON 4 MG/2 ML VIAL IVP PRN (13:11)
[2019-12-12] MEDS: HYDROmorphone 0.5 MG/0.5 ML SYRINGE IVP PRN ×2 (13:26→13:42)
[2019-12-12] MEDS: HYDROmorphone 1 MG/ML 1 ML SYRINGE IVP PRN ×2 (15:02→20:28)
[2019-12-12] MEDS: hydrALAZINE HCL 20 MG/ML 1 ML VIAL IVP PRN ×2 (15:11→20:28)
[2019-12-12] MEDS: ALBUTEROL NEBULIZED 2.5 MG/3 ML INHALATION SCH ×2 (16:06→20:44)
[2019-12-12] MEDS: KETOROLAC 15 MG/ML 1 ML VIAL IVP SCH ×2 (17:55→23:07)
[2019-12-12] MEDS: ceFAZolin 3 GM in SODIUM CHLORIDE 0.9% 100 ML IVPB SCH (19:10)
--- NOTE | 2019-12-12 20:07 | CONS ---
CONSULTATION DATE OF SERVICE: 12/12/2019 REASON FOR CONSULTATION: Advice regarding hypertension and other multiple medical issues, requested by Dr. Henley. HISTORY OF PRESENT ILLNESS: This 69-year-old gentleman with a past medical history of hypertension, history of renal disease, sleep apnea, history of hernia repair, being followed by Dr. Prado in the outpatient setting, underwent laparoscopic sleeve gastrectomy by Dr. Henley. The patient is complaining of some abdominal discomfort. Otherwise, there is no history of any fever, rigor or chills. Blood pressure was slightly elevated, responding to p.r.n. hydralazine. There is no history of headache, loss of consciousness or seizures at this time. PAST MEDICAL HISTORY: History of hypertension, history of renal disease, sleep apnea, history of hernia repair, joint replacement, depression. HOME MEDICATIONS: Wellbutrin XL 300 mg each morning, vitamin B complex, coenzyme-Q10, turmeric 500 daily, fatty acids, multivitamins, Toprol-XL, Cozaar, Xyzal, glucosamine, Neurontin, vitamin D2, aspirin, ascorbic acid, alpha lipoic acid. ALLERGIES: BACLOFEN. FAMILY HISTORY: History of cancer, myocardial infarction, breast cancer. SOCIAL HISTORY: Previous history of smoking. No current smoking or alcohol intake. REVIEW OF SYSTEMS: ENT: No diminished hearing. No diminished vision. CARDIOVASCULAR SYSTEM: No angina, palpitations. RESPIRATORY SYSTEM: No cough, hemoptysis. GI: No nausea, vomiting. : No dysuria or retention. NERVOUS SYSTEM: No numbness, weakness. ALLERGY/IMMUNOLOGY: No asthma, hayfever. MUSCULOSKELETAL: As mentioned earlier. HEMATOLOGY/ONCOLOGY: No history of anemia. ENDOCRINE: No history of diabetes, hypothyroidism. CONSTITUTIONAL: As mentioned earlier. DERMATOLOGY: Negative. RHEUMATOLOGY: Negative. PSYCHIATRY: As mentioned earlier. PHYSICAL EXAMINATION: Patient alert and oriented x3. Pulse 68, blood pressure 161/90, respiration 20, temperature normal, pulse ox 97% on room air. HEENT: Conjunctivae normal. Oral mucosa moist. NECK: No jugular venous distention. No carotid bruit. No lymph node enlargement. CARDIOVASCULAR SYSTEM: S1, S2 muffled. RESPIRATORY SYSTEM: Breath sounds diminished at the bases. No rhonchi. No crackles. ABDOMEN: Soft. Status post surgery. Mildly obese. Bowel sounds diminished. LEGS: No edema. No swelling. NERVOUS SYSTEM: Higher functions as mentioned earlier. Moves all 4 limbs. No focal motor or sensory deficit. LYMPHATICS: No lymph node palpable in neck, axillae or groin. SKIN: No ulcer, rash, bleeding. JOINTS: No active deforming arthropathy. LABS: Hematology recently; MCV 104; otherwise the BMP showed minimally elevated AST and ALT. ASSESSMENT: 1. Status post laparoscopic sleeve gastrectomy for morbid obesity. 2. Hypertension. 3. History of renal disease. 4. Sleep apnea. 5. History of nephrolithiasis. 6. History of pelvic kidney. 7. History of hernia repair. 8. History of degenerative joint disease and right knee replacement. 9. History of depression. 10.Remote history of nicotine dependence. 11.Obesity with body mass index of 46.3. RECOMMENDATIONS AND DISCUSSION: In this 69-year-old gentleman who presented with multiple complex medical issues, we will monitor the patient closely, continue the current medications, continue with symptomatic treatment. I recommend DVT prophylaxis and proton pump inhibitors. Otherwise, I would also recommend resuming the home medications when the patient is p.o. as determined by the surgeon. Otherwise, the patient has multiple supplements which may be the restored and started later. We will follow the patient closely with you. Thank you for letting us participate in the care of this patient. MMODL / IJN: [id number] /
[2019-12-13] MEDS: ceFAZolin 3 GM in SODIUM CHLORIDE 0.9% 100 ML IVPB SCH (03:04)
[2019-12-13] MEDS: HYDROmorphone 1 MG/ML 1 ML SYRINGE IVP PRN ×3 (03:09→15:50)
[2019-12-13] MEDS: LACTATED RINGERS 1,000 ML IV SCH (04:40)
[2019-12-13] MEDS: KETOROLAC 15 MG/ML 1 ML VIAL IVP SCH (05:22)
[2019-12-13 07:17] LABS: African American GFR (CKD) >90 (>60 ml/min/1.73 sqM); Anion Gap 12 mmol/L; Blood Urea Nitrogen 15 mg/dL (9-20); Calcium 8.6 mg/dL (8.4-10.2); Carbon Dioxide 20 mmol/L (22-30); Chloride 108 mmol/L (98-107); Non-African American GFR(CKD) 84 (>60 ml/min/1.73 sqM); Phosphorus 3.3 mg/dL (2.5-4.5); Sodium 140 mmol/L (137-145)
[2019-12-13 07:21] LABS: Magnesium 1.9 mg/dL (1.6-2.3); Potassium 5.6 mmol/L (3.5-5.1)
[2019-12-13 08:00] LABS: Basophils % (A) 1 %; Eosinophils # (A) 0.2 k/uL (0-0.7); Eosinophils % (A) 3 %; HCT 46.5 % (39.0-53.0); HGB 15.8 gm/dL (13.0-17.5); Lymphocytes # (A) 1.9 k/uL (1.0-4.8); Lymphocytes % (A) 21 %; Mean Platelet Volume 7.6; Monocytes # (A) 0.5 k/uL (0-1.0); Monocytes % (A) 5 %; Neutrophils # (A) 6.4 k/uL (1.3-7.7); Neutrophils % (A) 70 %; Platelet Count 218 k/uL (150-450); RBC 5.46 m/uL (4.30-5.90); RDW 13.3 % (11.5-15.5); WBC 9.2 k/uL (3.8-10.6)
[2019-12-13] MEDS ORDERED: SODIUM CHLORIDE 0.9% 1,000 ML with MVI, ADULT NO.4 WITH VIT K 10 ML, THIAMINE 100 MG, F... IV ONE ×4 (08:00)
[2019-12-13] MEDS ORDERED: 1: MVI, ADULT NO.4 WITH VIT K 10 ML, THIAMINE 100 MG, FOLIC ACID 1 MG, POTASSIUM CHLORID IV SCH ×6 (08:00)
[2019-12-13 08:03] LABS: MCV 85.3 fL (80.0-100.0)
--- NOTE | 2019-12-13 08:34 | FL ---
EXAMINATION TYPE: FL UGI DATE OF EXAM: 12/13/2019 COMPARISON: None HISTORY: Gastric sleeve TECHNIQUE: A single contrast UGI study is performed. FINDINGS: Contrast passes from the distal esophagus through the gastric sleeve with no significant he sitancy. No extravasation of contrast is evident. No free air is noted during this examination. Overhead radiographs were obtained which are unremarkable. IMPRESSIONS: 1. Normal post gastric sleeve without obstruction or hesitancy. No extravasation.
[2019-12-13] MEDS ORDERED: LOSARTAN 50 MG TAB PO SCH (09:00)
[2019-12-13] MEDS ORDERED: METOPROLOL SUCCINATE (ER) 100 MG TAB.ER.24H PO SCH (09:00)
[2019-12-13] MEDS ORDERED: PANTOPRAZOLE 40 MG/10 ML VIAL IV SCH (09:00)
[2019-12-13] MEDS: ALBUTEROL NEBULIZED 2.5 MG/3 ML INHALATION SCH ×4 (09:29→20:19)
--- NOTE | 2019-12-13 09:47 | P.PN ---
Subjective Progress Note Date: 12/13/19 CHIEF COMPLAINT: Morbid obesity HISTORY OF PRESENT ILLNESS: Status post sleeve gastrectomy. Postop day #1. Patient had upper GI completed showing normal post gastric sleeve without obstruction or hesitancy. No extravasation. Patient does report some pain in the abdomen. Denies any nausea or vomiting. No gas or bowel movement yet. Potassium elevated at 5.6. Potassium was removed from the fluids and Toradol discontinued. Patient afebrile. WBC 9.2 potassium 5.6 magnesium 1.9 creatinine 0.9 to PHYSICAL EXAM: VITAL SIGNS: Reviewed. GENERAL: Well-developed in no acute distress. HEENT: No sclera icterus. Extraocular movements grossly intact. Moist buccal mucosa. Head is atraumatic, normocephalic. ABDOMEN: Soft. Mildly distended. Incision sites clean dry and intact NEUROLOGIC: Alert and oriented. Cranial nerves II through XII grossly intact. ASSESSMENT: 1. Morbid obesity, BMI 46 status post Laparoscopic sleeve gastrectomy. Postop day #1 2. Hyperkalemia PLAN: -Start patient on bariatric clear liquid diet -Remove potassium from banana bag and Toradol discontinued due to elevated potassium -Repeat potassium level at noon -Continue IV fluids -DVT prophylaxis Lovenox and GI prophylaxis Protonix -Encourage patient to ambulate -Anticipate discharge possibly tomorrow Physician Chief Nursing Officer note has been reviewed by physician. Signing provider agrees with the documented findings, assessment, and plan of care. Objective - Vital Signs Vital signs: Vital Signs Temp 97.9 F 12/13/19 07:12 Pulse 63 12/13/19 07:12 Resp 17 12/13/19 07:12 BP 149/75 12/13/19 07:12 Pulse Ox 97 12/13/19 07:12 Intake & Output 12/12/19 12/13/19 12/13/19 18:59 06:59 18:59 Intake Total 1050 Output Total 5 350 Balance 1045 -350 Weight 159.1 kg Intake: IV 1050 Output: Urine 350 Estimated Blood Loss 5 Other: # Voids 1 - Labs CBC & Chem 7: 12/13/19 05:45 12/13/19 05:45 Labs: Abnormal Lab Results - Last 24 Hours (Table) 12/13/19 Range/Units 05:45 Potassium 5.6 H (3.5-5.1) mmol/L Chloride 108 H (98-107) mmol/L Carbon Dioxide 20 L (22-30) mmol/L
[2019-12-13] MEDS: buPROPion XL 300 MG TAB.ER.24H PO SCH (10:12)
[2019-12-13] MEDS: ENOXAPARIN 40 MG/0.4 ML SYRINGE SQ SCH (10:12)
[2019-12-13] MEDS: GABAPENTIN 300 MG CAP PO SCH ×2 (10:13→20:40)
[2019-12-13] MEDS ORDERED: HYDROcodone/APAP 15 ML SOLUTION PO PRN (11:11)
[2019-12-13 11:12] VITALS: BMI 46.3
--- NOTE | 2019-12-13 16:05 | PN ---
PROGRESS NOTE DATE OF SERVICE: 12/13/2019 This 69-year-old gentleman who was admitted after laparoscopic sleeve gastrectomy is being followed closely. Blood pressure is better controlled today. The potassium is elevated at 5.6. No chest pain. No palpitations. No fever. PHYSICAL EXAMINATION: Alert and oriented x3. Pulse 69, blood pressure 116/70, respiration 17, temperature 98.2, pulse ox 92% on room air. HEENT: Conjunctivae normal. NECK: No jugular venous distention. CARDIOVASCULAR SYSTEM: S1, S2 muffled. RESPIRATORY SYSTEM: Breath sounds diminished at the bases. ABDOMEN: Soft. Status post surgery. Obese. LEGS: No edema. No swelling. NERVOUS SYSTEM: No focal deficit. LABS: Sodium 140, potassium 5.6. Other labs are noted. ASSESSMENT: 1. Status post laparoscopic sleeve gastrectomy for morbid obesity. 2. Mild hyperkalemia. 3. Hypertension. 4. History of renal disease. 5. Sleep apnea. 6. History of nephrolithiasis. 7. History of pelvic kidney. 8. History of hernia repair. 9. History of degenerative joint disease and right knee replacement. 10.History of depression. 11.Remote history of nicotine dependence. 12.Obesity with body mass index of 46.3. RECOMMENDATIONS AND DISCUSSION: I recommend to continue current medications, continue with the monitoring, symptomatic treatment. Incentive spirometry. Repeat electrolytes. If the potassium is consistently high, Kayexalate. Otherwise, low-potassium diet, add to the clear liquid diet per bariatric procedure. Continue to monitor. Further recommendations to follow. MMODL / IJN: [id number] /
[2019-12-13] MEDS: HYDROcodone/APAP 7.5-325MG 1 EACH TAB PO PRN (20:37)
[2019-12-13] MEDS: LOSARTAN 50 MG TAB PO SCH (20:39)
[2019-12-13] MEDS: METOPROLOL SUCCINATE (ER) 100 MG TAB.ER.24H PO SCH (20:39)
[2019-12-13] MEDS: TEMAZEPAM 15 MG CAP PO PRN (22:33)
[2019-12-14] MEDS: hydrALAZINE HCL 20 MG/ML 1 ML VIAL IVP PRN (00:36)
[2019-12-14] MEDS: LACTATED RINGERS 1,000 ML IV SCH ×2 (02:57→23:30)
[2019-12-14] MEDS: HYDROcodone/APAP 7.5-325MG 1 EACH TAB PO PRN ×5 (03:36→22:09)
[2019-12-14] MEDS: HYDROmorphone 1 MG/ML 1 ML SYRINGE IVP PRN (07:56)
[2019-12-14] MEDS: PANTOPRAZOLE 40 MG TABLET PO SCH (07:59)
[2019-12-14] MEDS: buPROPion XL 300 MG TAB.ER.24H PO SCH (07:59)
[2019-12-14] MEDS: GABAPENTIN 300 MG CAP PO SCH ×2 (08:00→20:22)
[2019-12-14] MEDS: ENOXAPARIN 40 MG/0.4 ML SYRINGE SQ SCH (08:00)
[2019-12-14] MEDS: ALBUTEROL NEBULIZED 2.5 MG/3 ML INHALATION SCH ×4 (08:10→19:41)
--- NOTE | 2019-12-14 13:36 | P.PN ---
Subjective Progress Note Date: 12/14/19 CHIEF COMPLAINT: Morbid obesity HISTORY OF PRESENT ILLNESS: Status post sleeve gastrectomy. Postop day #2. Patient had upper GI completed showing normal post gastric sleeve without obstruction or hesitancy. No extravasation. Patient does report some pain in the abdomen. Denies any nausea or vomiting. No gas or bowel movement yet. Patient afebrile. potassium 5.1 patient's blood pressure elevated. Medicine has added blood pressure medication PHYSICAL EXAM: VITAL SIGNS: Reviewed. GENERAL: Well-developed in no acute distress. HEENT: No sclera icterus. Extraocular movements grossly intact. Moist buccal mucosa. Head is atraumatic, normocephalic. ABDOMEN: Soft. Mildly distended. Incision sites clean dry and intact NEUROLOGIC: Alert and oriented. Cranial nerves II through XII grossly intact. ASSESSMENT: 1. Morbid obesity, BMI 46 status post Laparoscopic sleeve gastrectomy. Postop day #2 2. Hyperkalemia resolved PLAN: -Continue bariatric clears -DVT prophylaxis Lovenox and GI prophylaxis Protonix -Encourage patient to ambulate -Anticipate discharge possibly tomorrow Physician Clerical Car Checker note has been reviewed by physician. Signing provider agrees with the documented findings, assessment, and plan of care. Objective - Vital Signs Vital signs: Vital Signs Temp 98.2 F 12/14/19 07:40 Pulse 77 12/14/19 08:20 Resp 16 12/14/19 08:00 BP 177/86 12/14/19 07:40 Pulse Ox 95 12/14/19 07:40 Intake & Output 12/13/19 12/14/19 12/14/19 18:59 06:59 18:59 Intake Total 600 Balance 600 Weight 159.1 kg Intake: Intake, IV Titration 600 Amount Sodium Chloride 0.9% 1, 600 000 ml @ 100 mls/hr IV . Q10H7M ONE with Mvi, Adult No.4 with Vit K 10 ml with Thiamine 100 mg with Folic Acid 1 mg Rx#: [id number] Other: # Voids 2 2 - Labs CBC & Chem 7: 12/13/19 05:45 12/13/19 13:01
--- NOTE | 2019-12-14 15:37 | PN ---
PROGRESS NOTE DATE OF SERVICE: 12/14/2019 This 69-year-old gentleman admitted after laparoscopic sleeve gastrectomy is being closely monitored. Blood pressure is slightly elevated. No chest pain. No palpitations. No fever. PHYSICAL EXAMINATION: Alert and oriented x3. The pulse is 76, blood pressure 177/86, respirations 16, temperature 98.2, pulse ox 94% on room air. HEENT: Conjunctivae normal. NECK: No jugular venous distention. CARDIOVASCULAR SYSTEM: S1, S2 muffled. RESPIRATORY SYSTEM: Breath sounds diminished at the bases. No rhonchi. No crackles. ABDOMEN: Soft. Status post surgery. LEGS: No edema. No swelling. NERVOUS SYSTEM: No focal deficit. LABS: CBC within normal limits. Potassium 5.1. ASSESSMENT: 1. Status post laparoscopic sleeve gastrectomy and morbid obesity. 2. Mild hyperkalemia, improved. 3. Hypertension. 4. History of renal disease. 5. Sleep apnea. 6. History of nephrolithiasis. 7. History of pelvic kidney. 8. History of hernia repair. 9. History of degenerative joint disease and right knee replacement. 10.History of depression. 11.Remote history of nicotine dependence. 12.Obesity with body mass index of 46.3. RECOMMENDATIONS AND DISCUSSION: I recommend to continue current medications, continue with the monitoring, symptomatic treatment. Otherwise, monitor the blood pressure closely. Blood pressure medication is restarted. p.r.n. Further recommendations to follow. Please also note: Potassium has improved. MMODL / IJN: [id number] /
[2019-12-14] MEDS: LOSARTAN 50 MG TAB PO SCH (20:21)
[2019-12-14] MEDS: METOPROLOL SUCCINATE (ER) 100 MG TAB.ER.24H PO SCH (20:21)
[2019-12-14] MEDS: TEMAZEPAM 15 MG CAP PO PRN (20:27)
[2019-12-15] MEDS: hydrALAZINE HCL 20 MG/ML 1 ML VIAL IVP PRN (00:26)
[2019-12-15] MEDS: HYDROcodone/APAP 7.5-325MG 1 EACH TAB PO PRN ×2 (04:27→11:51)
[2019-12-15] MEDS: buPROPion XL 300 MG TAB.ER.24H PO SCH (07:33)
[2019-12-15] MEDS: PANTOPRAZOLE 40 MG TABLET PO SCH (07:34)
[2019-12-15] MEDS: GABAPENTIN 300 MG CAP PO SCH (07:34)
[2019-12-15] MEDS: ENOXAPARIN 40 MG/0.4 ML SYRINGE SQ SCH (07:34)
[2019-12-15] MEDS: HYDROmorphone 1 MG/ML 1 ML SYRINGE IVP PRN (07:36)
[2019-12-15] MEDS: ALBUTEROL NEBULIZED 2.5 MG/3 ML INHALATION SCH ×2 (08:56→12:23)
[2019-12-15 13:39] VITALS: BP 163/84; PULSE 58; RESP 18; TEMP 97.8
[2019-12-15] MEDS ORDERED: hydrALAZINE HCL 20 MG/ML 1 ML VIAL IVP STA (13:50)
--- NOTE | 2019-12-15 14:13 | P.DS ---
Providers Date of admission: 12/12/19 09:55 Expected date of discharge: 12/15/19 Attending physician: Isaiah Henley Consults: 12/12/19 13:11 Consult Physician Routine Consulting Provider: Charito Palacios Consult Reason/Comments: Medical management Do you want consulting provider notified?: Yes Primary care physician: Abdon Prado Hospital Course: Discharge diagnosis 1. Morbid obesity, BMI 46 status post Laparoscopic sleeve gastrectomy 2. Hyperkalemia resolved Hospital course This is a 69-year-old male with a known history of morbid obesity. He underwent laparoscopic sleeve gastrectomy with Dr. Henley. Patient tolerated surgery well. Patient had upper GI completed showing normal post gastric sleeve without obstruction or hesitancy. No extravasation. Patient's pain is controlled. He is passing gas. He is up and ambulating. He is tolerating diet. He is afebrile. He is stable for discharge home. Physician Meat Cutter note has been reviewed by physician. Signing provider agrees with the documented findings, assessment, and plan of care. Patient Condition at Discharge: Stable Plan - Discharge Summary Discharge Rx Participant: Yes New Discharge Prescriptions: New Docusate [Colace] 100 mg PO BID #30 capsule Hydrocodone/Acetaminophen [Lorain 5-325] 1 tab PO Q6HR PRN 3 Days #12 tab PRN Reason: Pain Continue Losartan [Cozaar] 100 mg PO HS buPROPion HCL [Wellbutrin XL] 300 mg PO QAM Metoprolol Succinate [Toprol Xl] 100 mg PO HS Levocetirizine Dihydrochloride [Xyzal] 5 mg PO HS Gabapentin [Neurontin] 300 mg PO DAILY Aspirin 81 mg PO DAILY Glucosamine/MSM/Chrond/D3/Bosw [Okwgesckcjx-Yoxttq-HTD-D3 Cplt] 1 tab PO DAILY Ubidecarenone [Co Q-10] 100 mg PO DAILY Alpha Lipoic Acid 150 mg PO DAILY Turmeric Root Extract [Turmeric] 500 mg PO DAILY Lutein 40 mg PO DAILY [place]-3 Fatty Acids/Fish Oil [[place]-3 Fish Oil 1,200 mg Sfgl] 1 tab PO DAILY Gabapentin [Neurontin] 600 mg PO HS Discontinued Ergocalciferol (Vitamin D2) [Vitamin D2] 5,000 mg PO DAILY Ascorbic Acid [Vitamin C with Mariaelena Hips] 1,000 mg PO DAILY Multivitamins, Thera [Multivitamin (formulary)] 1 tab PO DAILY Vitamin B Complex 1 tab PO DAILY Vitamin B Complex 1 each PO DAILY Discharge Medication List Levocetirizine Dihydrochloride [Xyzal] 5 mg PO HS 02/10/18 [History] Losartan [Cozaar] 100 mg PO HS 02/10/18 [History] Metoprolol Succinate [Toprol Xl] 100 mg PO HS 02/10/18 [History] buPROPion HCL [Wellbutrin XL] 300 mg PO QAM 02/10/18 [History] Gabapentin [Neurontin] 300 mg PO DAILY 01/20/19 [History] Alpha Lipoic Acid 150 mg PO DAILY 10/16/19 [History] Aspirin 81 mg PO DAILY 10/16/19 [History] Glucosamine/MSM/Chrond/D3/Bosw [Ofobfiilajg-Xrtaqh-CYS-D3 Cplt] 1 tab PO DAILY 10/16/19 [History] Lutein 40 mg PO DAILY 10/16/19 [History] [place]-3 Fatty Acids/Fish Oil [[place]-3 Fish Oil 1,200 mg Sfgl] 1 tab PO DAILY 10/16/19 [History] Turmeric Root Extract [Turmeric] 500 mg PO DAILY 10/16/19 [History] Ubidecarenone [Co Q-10] 100 mg PO DAILY 10/16/19 [History] Gabapentin [Neurontin] 600 mg PO HS 12/07/19 [History] Docusate [Colace] 100 mg PO BID #30 capsule 12/15/19 [Rx] Hydrocodone/Acetaminophen [Lorain 5-325] 1 tab PO Q6HR PRN 3 Days #12 tab [Rx] Follow up Appointment(s)/Referral(s): Isaiah Henley MD [STAFF PHYSICIAN] - 1 Week Activity/Diet/Wound Care/Special Instructions: No driving while taking [place] No lifting over 10 pounds You may shower. No soaking or tub baths for 2 weeks Very light activity until you are reevaluated at your follow up appointment with your surgeon No straws or carbonated beverages Crush all pills to smaller than the size of a tic tac Diet bariatric full liquid diet Hold all vitamins for 1 week Discharge Disposition: HOME SELF-CARE
== END 2019-12-15 15:21 | disposition home or self-care (01) | DRG 621 ==
LOC: 2ORMAIN 09:55 → 4SSUR 13:52
PROVIDERS: ADMIT Surgery; ATTEND Surgery
PROC: 5A09457 Assistance with Respiratory Ventilation, 24-96 Consecutive Hours, Continuous Positive Airway Pressure (ICD-10-PCS; 2019-12-12)
PROC: 0DB64Z3 Excision of Stomach, Percutaneous Endoscopic Approach, Vertical (ICD-10-PCS; principal; 2019-12-12 11:15)
DX: E66.01 Morbid (severe) obesity due to excess calories (principal); Z68.42 Body mass index [BMI] 45.0-49.9, adult; I10 Essential (primary) hypertension; G47.30 Sleep apnea, unspecified; F32.9 Major depressive disorder, single episode, unspecified; E87.5 Hyperkalemia; M19.90 Unspecified osteoarthritis, unspecified site; Z71.3 Dietary counseling and surveillance; Z79.82 Long term (current) use of aspirin; Z79.899 Other long term (current) drug therapy; Z87.442 Personal history of urinary calculi; Z96.651 Presence of right artificial knee joint; Z98.1 Arthrodesis status; Z98.890 Other specified postprocedural states; Z87.891 Personal history of nicotine dependence; Z87.448 Personal history of other diseases of urinary system; Z88.8 Allergy status to other drugs, medicaments and biological substances; Z82.49 Family history of ischemic heart disease and other diseases of the circulatory system; Z80.3 Family history of malignant neoplasm of breast
CPT/HCPCS: 74240; 80051; 82310; 82565; 83735; 84100; 84132; 84520; 85025; 88307; 94640; 94760; 94762

== ENCOUNTER → 2019-12-25 | Outpatient (CLI) | payer MEDICARE ==
[2019-12-25 13:36] VITALS: BP 160/73; PULSE 49; RESP 18; TEMP 98.1; BMI 45.1
--- NOTE | 2019-12-25 14:40 | P.HPBAR ---
Bariatric H&P - History & Physicial H&P Date: 12/25/19 History & Physicial: Visit/CC: follow up / post sx Patient initial contact: Initial weight: Initial weight in pounds: Height: 6 ft 1 in Initial BMI: Last weight: Current weight: 155.129 kg Current weight in pounds: 342.00 Current BMI: 45.1 [place] body weight (based on NIH guidelines): 83.461 kg Excess body weight loss: The patient is a 69 year-old M who presents for Bariatric Assessment. Patient presents today for sleeve gastrectomy follow-up. He is doing quite well. He's had some mild GERD. His excellent weight loss. Past Medical History Past Medical History: Hypertension, Renal Disease, Sleep Apnea/CPAP/BIPAP Additional Past Medical History / Comment(s): Uses CPAP. Hx kidney stone. 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 RT CTR, RT ELBOW RELEASE Past Anesthesia/Blood Transfusion Reactions: No Reported Reaction Past Psychological History: Depression Smoking Status: Former smoker Past Alcohol Use History: None Reported Additional Past Alcohol Use History / Comment(s): Quit smoking 1986 Past Drug Use History: None Reported - Past Family History Sister(s) Family Medical History: Cancer, Myocardial Infarction ([place]) Additional Family Medical History / Comment(s): Breast cancer. Surgical - Exam Vital Signs Temp Pulse Resp BP 98.1 F 49 L 18 160/73 12/25/19 13:09 12/25/19 13:09 12/25/19 13:09 12/25/19 13:09 - General well developed, well nourished, no distress - Eyes PERRL - ENT normal pinna - Neck no masses - Respiratory normal expansion - Cardiovascular Rhythm: regular - Abdomen Abdomen: soft, non tender Bariatric Assessment & Plan Plan: Status post sleeve gastric. Patient appears minimal be observed. He will follow-up in 2 weeks. Bariatric Checklist Checklist: Plan: Checklist: EGD: 1. Hiatal hernia: 2. H. Pylori: HgbA1c: Vitamin D: Smoking: Former smoker Primary care physician referral: Dr Cifuentes Psychiatry clearance: Cardiology clearance: Sleep study: Diet journal: VTE risk score: VTE risk level: Rehab needs at discharge:
== END | disposition home or self-care (01) ==
LOC: BARWHC3 12:46
PROVIDERS: ATTEND Surgery
DX: Z48.815 Encounter for surgical aftercare following surgery on the digestive system (principal); K21.9 Gastro-esophageal reflux disease without esophagitis; Z87.891 Personal history of nicotine dependence; Z71.3 Dietary counseling and surveillance; Z68.42 Body mass index [BMI] 45.0-49.9, adult
CPT/HCPCS: 97803; G0463; 99211

== ENCOUNTER → 2020-01-08 | Outpatient (CLI) | payer MEDICARE ==
[2020-01-08 14:15] VITALS: BP 142/82; PULSE 92; TEMP 98.2; BMI 44.4
--- NOTE | 2020-01-08 14:45 | P.HPBAR ---
Bariatric H&P - History & Physicial H&P Date: 01/08/20 History & Physicial: Visit/CC: one month followup Patient initial contact: Initial weight: Initial weight in pounds: Height: 6 ft 1 in Initial BMI: Last weight: Current weight: 152.861 kg Current weight in pounds: 337.00 Current BMI: 44.4 [place] body weight (based on NIH guidelines): 83.461 kg Excess body weight loss: The patient is a 69 year-old M who presents for Bariatric Assessment. Patient presents today for sleeve gastrectomy follow-up. He is 1 month postop. He's lost approximately 30 pounds since surgery. He's had some minimal GERD Past Medical History Past Medical History: Hypertension, Renal Disease, Sleep Apnea/CPAP/BIPAP Additional Past Medical History / Comment(s): Uses CPAP. Hx kidney stone. 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 RT CTR, RT ELBOW RELEASE Past Anesthesia/Blood Transfusion Reactions: No Reported Reaction Smoking Status: Former smoker - Past Family History Sister(s) Family Medical History: Cancer, Myocardial Infarction ([place]) Additional Family Medical History / Comment(s): Breast cancer. Surgical - Exam Vital Signs Temp Pulse BP 98.2 F 92 142/82 01/08/20 14:13 01/08/20 14:13 01/08/20 14:13 - General well developed, well nourished, no distress - Eyes PERRL - ENT normal pinna - Neck no masses - Respiratory normal expansion - Cardiovascular Rhythm: regular - Abdomen Abdomen: soft, non tender Bariatric Assessment & Plan Plan: Morbid obesity. Patient status post sleeve gastrectomy. He has had minimal GERD which will be observed. He'll follow-up in 4 weeks. Bariatric Checklist Checklist: Plan: Checklist: EGD: 1. Hiatal hernia: 2. H. Pylori: HgbA1c: Vitamin D: Smoking: Former smoker Primary care physician referral: Dr Cifuentes Psychiatry clearance: Cardiology clearance: Sleep study: Diet journal: VTE risk score: VTE risk level: Rehab needs at discharge:
[2020-01-08 15:30] LABS: HCT 45.7 % (39.0-53.0); MCH 34.5 pg (25.0-35.0); MCHC 32.9 g/dL (31.0-37.0); Macrocytosis Slight; Mean Platelet Volume 8.8; Platelet Count 154 k/uL (150-450); RBC 4.34 m/uL (4.30-5.90); RDW 12.4 % (11.5-15.5); WBC 5.4 k/uL (3.8-10.6)
[2020-01-08 15:31] LABS: MCV 105.1 fL (80.0-100.0)
[2020-01-08 20:59] LABS: African American GFR (CKD) 99.2 (60.0-200.0); Albumin 3.9 g/dL (3.80-4.90); Albumin/Globulin Ratio 1.44 (1.60-3.17); Anion Gap 8.8 mmol/L (4.00-12.00); BUN/Creat Ratio 21.11 Ratio (12.00-20.00); Calcium 9.1 mg/dL (8.7-10.3); Carbon Dioxide 21.2 mmol/L (21.6-31.8); Globulin 2.7 g/dL (1.6-3.3); Non-African American GFR(CKD) 85.6 (60.0-200.0); Potassium 4.9 mmol/L (3.5-5.5); Total Bilirubin 0.5 mg/dL (0.3-1.2); Total Protein 6.6 g/dL (6.2-8.2)
[2020-01-08 21:16] LABS: Folate, Serum 19.1 ng/mL
== END | disposition home or self-care (01) ==
LOC: BARWHC3 13:15
PROVIDERS: ATTEND Surgery
DX: Z48.815 Encounter for surgical aftercare following surgery on the digestive system (principal); E44.0 Moderate protein-calorie malnutrition; E55.9 Vitamin D deficiency, unspecified; Z98.84 Bariatric surgery status; Z87.891 Personal history of nicotine dependence; Z98.890 Other specified postprocedural states; Z71.3 Dietary counseling and surveillance
CPT/HCPCS: 84425; 80053; 82607; 82746; 84443; 85027; 82306; 97803; G0463; 99211

== ENCOUNTER → 2020-02-12 | Outpatient (CLI) | payer MEDICARE ==
--- NOTE | 2020-02-12 14:10 | P.HPBAR ---
Bariatric H&P - History & Physicial H&P Date: 02/12/20 History & Physicial: Visit/CC: Patient initial contact: Initial weight: Initial weight in pounds: Height: Initial BMI: Last weight: 337 Current weight: 324 Current weight in pounds: Current BMI: [place] body weight (based on NIH guidelines): Excess body weight loss: The patient is a 69 year-old M who presents for Bariatric Assessment. Presents today for sleeve gastrectomy follow-up. Patient's had some mild GERD. He is an excellent weight loss. He feels well otherwise. Past Medical History Past Medical History: Hypertension, Renal Disease, Sleep Apnea/CPAP/BIPAP Additional Past Medical History / Comment(s): Uses CPAP. Hx kidney stone. 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 RT CTR, RT ELBOW RELEASE Past Anesthesia/Blood Transfusion Reactions: No Reported Reaction Smoking Status: Former smoker - Past Family History Sister(s) Family Medical History: Cancer, Myocardial Infarction ([place]) Additional Family Medical History / Comment(s): Breast cancer. Surgical - Exam - General well developed, well nourished, no distress - Eyes PERRL - ENT normal pinna, normal nares - Neck no masses - Respiratory normal expansion - Cardiovascular Rhythm: regular - Abdomen Abdomen: soft, non tender Bariatric Assessment & Plan Plan: Status post sleeve gastrectomy. Patient's GERD is minimal old observed. He will follow-up in 4 weeks. Bariatric Checklist Checklist: Plan: Checklist: EGD: 1. Hiatal hernia: 2. H. Pylori: HgbA1c: Vitamin D: Smoking: Former smoker Primary care physician referral: Dr Cifuentes Psychiatry clearance: Cardiology clearance: Sleep study: Diet journal: VTE risk score: VTE risk level: Rehab needs at discharge:
[2020-02-12 14:15] VITALS: BP 128/75; PULSE 53; RESP 16; TEMP 98.1; BMI 42.7
== END | disposition home or self-care (01) ==
LOC: BARWHC3 13:48
PROVIDERS: ATTEND Surgery
DX: Z48.815 Encounter for surgical aftercare following surgery on the digestive system (principal); K21.9 Gastro-esophageal reflux disease without esophagitis; Z99.89 Dependence on other enabling machines and devices
CPT/HCPCS: 99211

== ENCOUNTER → 2020-03-18 | Outpatient (CLI) | payer MEDICARE ==
[2020-03-18 14:32] VITALS: BP 135/84; PULSE 55; RESP 18; TEMP 97.3; BMI 41.3
--- NOTE | 2020-03-18 14:39 | P.HPBAR ---
Bariatric H&P - History & Physicial H&P Date: 03/18/20 History & Physicial: Visit/CC: follow up Patient initial contact: Initial weight: 165.561 kg Initial weight in pounds: 365.00 Height: 6 ft 1 in Initial BMI: 48.1 Last weight: Current weight: 141.974 kg Current weight in pounds: 313.00 Current BMI: 41.3 [place] body weight (based on NIH guidelines): 83.461 kg Excess body weight loss: 28.7% The patient is a 69 year-old M who presents for Bariatric Assessment. Patient presents today for sleeve gastrectomy follow-up. He feels quite well. He's had excellent weight loss. He has had some minimal GERD. Past Medical History Past Medical History: Hypertension, Renal Disease, Sleep Apnea/CPAP/BIPAP Additional Past Medical History / Comment(s): Uses CPAP. Hx kidney stone. 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 RT CTR, RT ELBOW RELEASE Past Anesthesia/Blood Transfusion Reactions: No Reported Reaction Past Psychological History: Depression Smoking Status: Former smoker Past Alcohol Use History: None Reported Additional Past Alcohol Use History / Comment(s): Quit smoking 1986 Past Drug Use History: None Reported - Past Family History Sister(s) Family Medical History: Cancer, Myocardial Infarction ([place]) Additional Family Medical History / Comment(s): Breast cancer. Surgical - Exam Vital Signs Temp Pulse Resp BP 97.3 F L 55 L 18 135/84 03/18/20 14:23 03/18/20 14:23 03/18/20 14:23 03/18/20 14:23 - General well developed, well nourished, no distress - Eyes PERRL - Abdomen Abdomen: soft, non tender Bariatric Assessment & Plan Plan: Status post sleeve history patient did quite well. His GERD is minimal. Bariatric Checklist Checklist: Plan: Checklist: EGD: 1. Hiatal hernia: 2. H. Pylori: HgbA1c: Vitamin D: Smoking: Former smoker Primary care physician referral: Dr McPhillmy Psychiatry clearance: Cardiology clearance: Sleep study: Diet journal: VTE risk score: VTE risk level: Rehab needs at discharge:
[2020-03-18 16:34] LABS: HCT 46.3 % (39.0-53.0); HGB 15.6 gm/dL (13.0-17.5); MCH 34.3 pg (25.0-35.0); MCHC 33.7 g/dL (31.0-37.0); MCV 101.7 fL (80.0-100.0); Macrocytosis Slight; Mean Platelet Volume 9.5; Platelet Count 164 k/uL (150-450); RBC 4.55 m/uL (4.30-5.90); RDW 12.7 % (11.5-15.5); WBC 6.2 k/uL (3.8-10.6)
[2020-03-19 00:41] LABS: ALT 39 U/L (10-49); AST 34 U/L (14-35); African American GFR (CKD) 99.2 (60.0-200.0); Albumin/Globulin Ratio 1.46 (1.60-3.17); Alkaline Phosphatase 90 U/L (41-126); BUN/Creat Ratio 21.11 Ratio (12.00-20.00); Calcium 9.3 mg/dL (8.7-10.3); Carbon Dioxide 25.1 mmol/L (21.6-31.8); Chloride 108 mmol/L (96-109); Globulin 2.8 g/dL (1.6-3.3); Glucose 103 mg/dL (70-110); Non-African American GFR(CKD) 85.6 (60.0-200.0); Potassium 4.3 mmol/L (3.5-5.5); Sodium 140 mmol/L (135-145); Total Bilirubin 0.5 mg/dL (0.2-1.2); Total Protein 6.9 g/dL (6.2-8.2)
[2020-03-19 02:03] LABS: Folate, Serum >24.0 ng/mL
== END | disposition home or self-care (01) ==
LOC: BARWHC3 14:04
PROVIDERS: ATTEND Surgery
DX: Z48.815 Encounter for surgical aftercare following surgery on the digestive system (principal); Z98.84 Bariatric surgery status; K21.9 Gastro-esophageal reflux disease without esophagitis; Z71.3 Dietary counseling and surveillance; E44.0 Moderate protein-calorie malnutrition; E55.9 Vitamin D deficiency, unspecified; E66.01 Morbid (severe) obesity due to excess calories
CPT/HCPCS: 84425; 80053; 82607; 82746; 84443; 85027; 82306; 97803; G0463; 99211

== ENCOUNTER → 2020-04-09 | Outpatient (CLI) | payer MEDICARE ==
--- NOTE | 2020-04-09 14:51 | PN ---
PROGRESS NOTE PROGRESS NOTE FROM SLEEP CENTER This is a 69-year-old male patient with diagnosis of obstructive sleep apnea coming in for an annual check. The patient has a case of severe JAMES with an AHI of 52 and he is currently on a CPAP pressure of 12 cm of water. He is using an AirTouch large-sized full-face mask. He is post bariatric surgery and the patient continues to loose weight and he is down to 313 pounds. He remains extremely compliant and he continues to benefit from the CPAP unit and CPAP treatment in general. Based on a 30-day compliancy data accumulating on the machine, the patient has been averaging around 12.3 hours of CPAP use per night and his CPAP use for more than 4 hours at 100%. Leak is in order of 25 L/minute and his AHI is down to 4.0. No complaints. No aerophagia. No chest pain. No shortness of breath. No heartburn. REVIEW OF SYSTEMS: Fourteen-point review of system was done and positive findings are mentioned in history of present illness. PHYSICAL EXAMINATION: VITAL SIGNS: BP is 146/88, pulse is 50, respirations 16, temperature 97.8, saturation 97% on room air. Height is 6 feet 1 inch. Weight is 314. BMI 41.2. GENERAL APPEARANCE: Calm, comfortable. HEAD: Atraumatic, normocephalic. NECK: Supple. No JVD. No goiter or neck mass. Mallampati class 4. LUNGS: Clear to auscultation. HEART: Sounds are regular rate and rhythm. Normal S1, S2. No S3, no S4. No murmurs. ABDOMEN: Soft, nontender. No organomegaly. EXTREMITIES: No edema. No cyanosis or clubbing. NEUROLOGIC: Awake and alert. There is no focal neurological deficit. IMPRESSION: 1. Severe obstructive sleep apnea with an AHI of 52 currently on CPAP pressure of 12 cm of water. Treatment remains successful. 2. Hypersomnia, recovered. 3. Obesity with ongoing weight loss post bariatric surgery. The patient has lost an additional weight and currently is down to 313 pounds. 4. Benign prostatic hypertrophy. 5. Degenerative arthritis. PLAN: 1. Encourage further weight loss and the patient has been losing weight. 2. Continue CPAP at same level of pressure. 3. Refill the AirTouch full-face mask, large size. 4. Sleep hygiene measures are all good. 5. The patient will see me back in a year's time earlier if needed. MMODL / IJN: [id number] /
== END | disposition home or self-care (01) ==
LOC: SLEEP 13:40
PROVIDERS: ATTEND Internal Medicine Critical Care Medicine
DX: G47.33 Obstructive sleep apnea (adult) (pediatric) (principal); E66.9 Obesity, unspecified; N40.0 Benign prostatic hyperplasia without lower urinary tract symptoms; M19.90 Unspecified osteoarthritis, unspecified site; Z98.84 Bariatric surgery status; Z99.89 Dependence on other enabling machines and devices

== ENCOUNTER → 2020-04-22 | Outpatient (CLI) | payer MEDICARE ==
[2020-04-22 13:58] VITALS: BP 124/70; PULSE 50; RESP 18; TEMP 97.3; BMI 40.1
--- NOTE | 2020-04-22 14:04 | P.HPBAR ---
Bariatric H&P - History & Physicial H&P Date: 04/22/20 History & Physicial: Visit/CC: follow u p Patient initial contact: Initial weight: 165.561 kg Initial weight in pounds: 365.00 Height: 6 ft 1 in Initial BMI: 48.1 Last weight: Current weight: 137.892 kg Current weight in pounds: 304.00 Current BMI: 40.1 [place] body weight (based on NIH guidelines): 83.461 kg Excess body weight loss: 33.7% The patient is a 69 year-old M who presents for Bariatric Assessment. Patient presents today for sleeve gastrectomy follow-up. He is an excellent weight loss. He had some minimal GERD. Past Medical History Past Medical History: Hypertension, Renal Disease, Sleep Apnea/CPAP/BIPAP Additional Past Medical History / Comment(s): Uses CPAP. Hx kidney stone. 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 RT CTR, RT ELBOW RELEASE Past Anesthesia/Blood Transfusion Reactions: No Reported Reaction Past Psychological History: Depression Smoking Status: Former smoker Past Alcohol Use History: None Reported Additional Past Alcohol Use History / Comment(s): Quit smoking 1986 Past Drug Use History: None Reported - Past Family History Sister(s) Family Medical History: Cancer, Myocardial Infarction ([place]) Additional Family Medical History / Comment(s): Breast cancer. Surgical - Exam Vital Signs Temp Pulse Resp BP 97.3 F L 50 L 18 124/70 04/22/20 13:47 04/22/20 13:47 04/22/20 13:47 04/22/20 13:47 - General well developed, well nourished, no distress - Eyes PERRL - ENT normal pinna - Neck no masses - Respiratory normal expansion - Cardiovascular Rhythm: regular - Abdomen Abdomen: soft, non tender Bariatric Assessment & Plan Plan: Status post sleeve gastrectomy. Patient's had excellent weight loss. His GERD is minimal obesity observed. He'll follow-up in 4 weeks. Bariatric Checklist Checklist: Plan: Checklist: EGD: 1. Hiatal hernia: 2. H. Pylori: HgbA1c: Vitamin D: Smoking: Former smoker Primary care physician referral: Dr Cifuentes Psychiatry clearance: Cardiology clearance: Sleep study: Diet journal: VTE risk score: VTE risk level: Rehab needs at discharge:
== END | disposition home or self-care (01) ==
LOC: BARWHC3 13:24
PROVIDERS: ATTEND Surgery
DX: Z48.815 Encounter for surgical aftercare following surgery on the digestive system (principal); Z98.84 Bariatric surgery status
CPT/HCPCS: 99211

== ENCOUNTER → 2020-05-27 | Outpatient (CLI) | payer MEDICARE ==
[2020-05-27 13:45] VITALS: BP 145/81; PULSE 76; RESP 18; TEMP 97.9; BMI 39.4
--- NOTE | 2020-05-27 15:16 | P.HPBAR ---
Bariatric H&P - History & Physicial H&P Date: 05/27/20 History & Physicial: Visit/CC: follow up 6 months Patient initial contact: Initial weight: 165.561 kg Initial weight in pounds: 365.00 Height: 6 ft 1 in Initial BMI: 48.1 Last weight: Current weight: 135.624 kg Current weight in pounds: 299.00 Current BMI: 39.4 [place] body weight (based on NIH guidelines): 83.461 kg Excess body weight loss: 36.4% The patient is a 69 year-old M who presents for Bariatric Assessment. Patient presents today for sleeve gastrectomy follow-up. He feels well. He's had some complaints of GERD. Past Medical History Past Medical History: Hypertension, Renal Disease, Sleep Apnea/CPAP/BIPAP Additional Past Medical History / Comment(s): Uses CPAP. Hx kidney stone. 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 History of Any Multi-Drug Resistant Organisms: None Reported Past Surgical History: Hernia Repair, Joint Replacement, Orthopedic Surgery, Tonsillectomy Additional Past Surgical History / Comment(s): Right knee replacement, hernia repair X2, cervical fusion C4 and C5, C5 and C6. RT CTR, RT ELBOW RELEASE Past Anesthesia/Blood Transfusion Reactions: No Reported Reaction Past Psychological History: Depression Smoking Status: Former smoker Past Alcohol Use History: None Reported Additional Past Alcohol Use History / Comment(s): Quit smoking 1986 Past Drug Use History: None Reported - Past Family History Sister(s) Family Medical History: Cancer, Myocardial Infarction ([place]) Additional Family Medical History / Comment(s): Breast cancer. Surgical - Exam Vital Signs Temp Pulse Resp BP 97.9 F 76 18 145/81 05/27/20 13:41 05/27/20 13:41 05/27/20 13:41 05/27/20 13:41 - General well developed, well nourished, no distress - Eyes PERRL - ENT normal pinna - Neck no masses - Respiratory normal expansion - Cardiovascular Rhythm: regular - Abdomen Abdomen: soft, non tender Bariatric Assessment & Plan Plan: Status post sleeve gastric. Patient did quite well. Her GERD is minimal will be observed. Bariatric Checklist Checklist: Plan: Checklist: EGD: 1. Hiatal hernia: 2. H. Pylori: HgbA1c: Vitamin D: Smoking: Former smoker Primary care physician referral: Dr Cifuentes Psychiatry clearance: Cardiology clearance: Sleep study: Diet journal: VTE risk score: VTE risk level: Rehab needs at discharge:
== END ==
LOC: BARWHC3 13:21
PROVIDERS: ATTEND Surgery
DX: Z09 Encounter for follow-up examination after completed treatment for conditions other than malignant neoplasm (principal); I10 Essential (primary) hypertension; F32.9 Major depressive disorder, single episode, unspecified; K21.9 Gastro-esophageal reflux disease without esophagitis; Z98.84 Bariatric surgery status; Z87.891 Personal history of nicotine dependence
CPT/HCPCS: 97803; G0463; 99211

== ENCOUNTER → 2020-07-01 | Outpatient (CLI) | payer MEDICARE ==
[2020-07-01 14:23] VITALS: BP 140/80; PULSE 58; RESP 18; TEMP 98.5; BMI 37.8
== END ==
LOC: BARWHC3 13:21
PROVIDERS: ATTEND Surgery
DX: E66.01 Morbid (severe) obesity due to excess calories (principal); Z68.37 Body mass index [BMI] 37.0-37.9, adult; I10 Essential (primary) hypertension; Z98.84 Bariatric surgery status; Z87.891 Personal history of nicotine dependence
CPT/HCPCS: 99211

== ENCOUNTER → 2020-10-07 | Outpatient (CLI) | payer MEDICARE ==
[2020-10-07 14:03] VITALS: BP 148/89; PULSE 71; RESP 18; TEMP 98.2; BMI 37.0
--- NOTE | 2020-10-07 16:24 | P.HPBAR ---
Bariatric H&P - History & Physicial H&P Date: 10/07/20 History & Physicial: Visit/CC: follow up Patient initial contact: Initial weight: 165.561 kg Initial weight in pounds: 365.00 Height: 6 ft 1 in Initial BMI: 48.1 Last weight: Current weight: 127.459 kg Current weight in pounds: 281.00 Current BMI: 37.0 [place] body weight (based on NIH guidelines): 83.461 kg Excess body weight loss: 46.4% The patient is a 70 year-old M who presents for Bariatric Assessment. Patient presents today for sleeve gastrectomy follow-up. He's had some mild GERD. His weight has been stable. Past Medical History Past Medical History: Hypertension, Renal Disease, Sleep Apnea/CPAP/BIPAP Additional Past Medical History / Comment(s): Uses CPAP. Hx kidney stone. 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 History of Any Multi-Drug Resistant Organisms: None Reported Past Surgical History: Hernia Repair, Joint Replacement, Orthopedic Surgery, Tonsillectomy Additional Past Surgical History / Comment(s): Right knee replacement, hernia repair X2, cervical fusion C4 and C5, C5 and C6. RT CTR, RT ELBOW RELEASE Past Anesthesia/Blood Transfusion Reactions: No Reported Reaction Past Psychological History: Depression Smoking Status: Former smoker Past Alcohol Use History: None Reported Additional Past Alcohol Use History / Comment(s): Quit smoking 1986 Past Drug Use History: None Reported - Past Family History Sister(s) Family Medical History: Cancer, Myocardial Infarction ([place]) Additional Family Medical History / Comment(s): Breast cancer. Surgical - Exam Vital Signs Temp Pulse Resp BP 98.2 F 71 18 148/89 10/07/20 13:53 10/07/20 13:53 10/07/20 13:53 10/07/20 13:53 - General well developed, well nourished, no distress - Eyes PERRL - ENT normal pinna - Neck no masses - Respiratory normal expansion - Cardiovascular Rhythm: regular - Abdomen Abdomen: soft, non tender Bariatric Assessment & Plan Plan: Status post sleeve gastrectomy. Patient had excellent pulse. His GERD is minimal and will be observed. He'll follow-up in 4 weeks. Bariatric Checklist Checklist: Plan: Checklist: EGD: 1. Hiatal hernia: 2. H. Pylori: HgbA1c: Vitamin D: Smoking: Former smoker Primary care physician referral: Dr Cifuentes Psychiatry clearance: Cardiology clearance: Sleep study: Diet journal: VTE risk score: VTE risk level: Rehab needs at discharge:
== END | disposition home or self-care (01) ==
LOC: BARWHC3 13:07
PROVIDERS: ATTEND Surgery
DX: E66.01 Morbid (severe) obesity due to excess calories (principal); K21.9 Gastro-esophageal reflux disease without esophagitis; I10 Essential (primary) hypertension; G47.33 Obstructive sleep apnea (adult) (pediatric); Z68.37 Body mass index [BMI] 37.0-37.9, adult; Z87.891 Personal history of nicotine dependence; Z98.84 Bariatric surgery status
CPT/HCPCS: 99211

== ENCOUNTER → 2021-03-17 | Outpatient (CLI) | payer MEDICARE ==
[2021-03-17 14:41] VITALS: BP 174/79; PULSE 56; RESP 18; TEMP 98.4; BMI 37.7
--- NOTE | 2021-03-17 16:37 | P.HPBAR ---
Bariatric H&P - History & Physicial H&P Date: 03/17/21 History & Physicial: Visit/CC: follow up Patient initial contact: Initial weight: 165.561 kg Initial weight in pounds: 365.00 Height: 6 ft 1 in Initial BMI: 48.1 Last weight: Current weight: 129.727 kg Current weight in pounds: 286.00 Current BMI: 37.7 [place] body weight (based on NIH guidelines): 83.461 kg Excess body weight loss: 43.6% The patient is a 70 year-old M who presents for Bariatric Assessment. Patient presents today for bariatric fall. He has some complaints of GERD. He's had an excellent weight loss. Past Medical History Past Medical History: Hypertension, Renal Disease, Sleep Apnea/CPAP/BIPAP Additional Past Medical History / Comment(s): Uses CPAP. Hx kidney stone. 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 History of Any Multi-Drug Resistant Organisms: None Reported Past Surgical History: Hernia Repair, Joint Replacement, Orthopedic Surgery, Tonsillectomy Additional Past Surgical History / Comment(s): Right knee replacement, hernia repair X2, cervical fusion C4 and C5, C5 and C6. RT CTR, RT ELBOW RELEASE Past Anesthesia/Blood Transfusion Reactions: No Reported Reaction Past Psychological History: Depression Smoking Status: Former smoker Past Alcohol Use History: None Reported Additional Past Alcohol Use History / Comment(s): Quit smoking 1986 Past Drug Use History: None Reported - Past Family History Sister(s) Family Medical History: Cancer, Myocardial Infarction ([place]) Additional Family Medical History / Comment(s): Breast cancer. Surgical - Exam Vital Signs Temp Pulse Resp BP 98.4 F 56 L 18 174/79 03/17/21 14:28 03/17/21 14:28 03/17/21 14:28 03/17/21 14:28 - General well developed, well nourished, no distress - Eyes PERRL - ENT normal pinna - Neck no masses - Respiratory normal expansion - Cardiovascular Rhythm: regular - Abdomen Abdomen: soft, non tender Bariatric Assessment & Plan Plan: Improving morbid obesity. Patient's girth is minimal and will be observed. He'll follow-up in 4 weeks. Bariatric Checklist Checklist: Plan: Checklist: EGD: 1. Hiatal hernia: 2. H. Pylori: HgbA1c: Vitamin D: Smoking: Former smoker Primary care physician referral: Dr Cifuentes Psychiatry clearance: Cardiology clearance: Sleep study: Diet journal: VTE risk score: VTE risk level: Rehab needs at discharge:
== END | disposition home or self-care (01) ==
LOC: BARWHC3 13:35
PROVIDERS: ATTEND Surgery
DX: E66.01 Morbid (severe) obesity due to excess calories (principal); Z68.37 Body mass index [BMI] 37.0-37.9, adult
CPT/HCPCS: 99211

== ENCOUNTER → 2021-04-15 | Outpatient (CLI) | payer MEDICARE ==
--- NOTE | 2021-04-15 19:54 | PN ---
PROGRESS NOTE Herrera is a 70-year-old male patient with known history of obstructive sleep apnea. The patient has a case of severe JAMES with an AHI of 52 and the patient remains on a CPAP pressure of 12 cm of water. The patient has lost weight. He used to weigh 314 and currently is down to 297. He continues to wear his CPAP every night. This is a yearly check for him. Based on the compliance data, the patient has been averaging around 8.9 hours of CPAP use per night and his leak is on the order of 30 L/minute. His AHI while on treatment is down to 5.8. [place] score is down to zero. He has no complaints. No cardiovascular complications. No stroke. No tiredness or sleepiness during the day. His sleep quality is good. REVIEW OF SYSTEMS: Fourteen-point review of systems was done. Positive findings are all mentioned above in the history of present illness. PHYSICAL EXAMINATION: BP is 145/87, pulse 60, respirations 16, temperature 97.4, weight is 297, height is 6 feet 0 inches. BMI is 40.2. [place] score is zero. GENERAL APPEARANCE: Calm, comfortable. HEAD: Atraumatic, normocephalic. Neck is supple. No JVD. No goiter or neck masses. Mallampati class IV. LUNGS: Diminished; otherwise clear. Heart sounds are regular rate and rhythm. Normal S1, S2. No S3, S4. No murmurs. ABDOMEN: Soft, nontender. No organomegaly. EXTREMITIES: No edema. No cyanosis or clubbing. IMPRESSION: 1. Severe obstructive sleep apnea, AHI of 52, currently on CPAP pressure of 12. 2. Hypersomnia, improved. 3. Obesity with a BMI of 40.2. 4. Benign prostatic hypertrophy. 5. Degenerative arthritis. 6. Hypersomnia, improved. [place] score is down to zero. PLAN: 1. Continue CPAP therapy at the same level of pressure of 12 cm of water. 2. Refill the supplies for now. The patient is using an AirTouch large-sized full-face mask. 3. Encourage weight loss. 4. Treatment in general is successful. No further need for adjustments. See me back in a year's time. MMODL / IJN: [id number] /
== END | disposition home or self-care (01) ==
LOC: SLEEP 13:00
PROVIDERS: ATTEND Internal Medicine Critical Care Medicine
DX: Z53.9 Procedure and treatment not carried out, unspecified reason (principal)

== ENCOUNTER 2021-04-28 11:42 | Emergency (ER) | payer MEDICARE, OTHER ==
[2021-04-28 11:56] VITALS: RESP 16; TEMP 98.1
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
[2021-04-28 14:04] VITALS: BP 153/87; PULSE 77
== END 2021-04-28 14:05 | disposition home or self-care (01) ==
LOC: EC 11:42
DX: M79.671 Pain in right foot (principal); Z88.6 Allergy status to analgesic agent; I10 Essential (primary) hypertension; F17.200 Nicotine dependence, unspecified, uncomplicated; V99.XXXA Unspecified transport accident, initial encounter
CPT/HCPCS: 99284

== ENCOUNTER → 2021-12-09 | Outpatient (CLI) | payer MEDICARE ==
--- NOTE | 2021-12-09 15:41 | P.PN ---
Subjective Progress Note Date: 12/09/21 71-year-old male patient was coming in today for her compliance check regarding his new CPAP unit.The patient is known to have severe obstructive sleep apnea and the patient has an AHI of 52 and the patient has obtained a new generation ResMed CPAP unit which is adjusted at a pressure of 12 cm of water. He also has a touch large size full facemask. On today's evaluation, the patient reports that his machine is functioning the patient is feeling good. His only complaint is excessive oral dryness. I checked a CPAP unit. The machine is functional. There is a newer generation ResMed 11, and it is adjusted at a pressure of 12 cm of water. Based on his 30 day compliance he and based on the data that has been collected between 11/09/2021 and 12/08/2021, the patient utilizes machine more than 4 hours 93% of the time. The patient has been averaging around 8 hours and 29 minutes of CPAP use per night. His leak is in order of 55 L per minute and his AHI is down to 9.8. No central events noted. The patient is awake and a first alert during the day. He has no specific episodes of having excessive oral dryness. I checked the mask. I also checked the setting of his machine. His humidification system is completely off at this point in time. Objective - Exam BP is 131/88 with a pulse of 68 and a respiration of 16 and a temperature 97.9. [place] score is at 0. Weight is 304 The patient appeared well nourished and normally developed. Vital signs as documented. Head exam is unremarkable. No scleral icterus or corneal arcus noted. Neck is without jugular venous distension, thyromegaly, or carotid bruits. Carotid upstrokes are brisk bilaterally. Lungs are clear to auscultation and percussion. Cardiac exam reveals the PMI to be normally sized and situated. Rhythm is regular. First and second heart sounds normal. No murmurs, rubs or gallops. Abdominal exam reveals normal bowel sounds, no masses, no organomegaly and no aortic enlargement. Extremities are nonedematous and both femoral and pedal pulses are normal.Examination of the skin revealed no evidence of significant rashes, suspicious appearing nevi or other concerning lesions.Neurologically, the patient is awake and alert and the patient does not have any focal neurological deficit. Cranial nerves are essentially intact. Assessment and Plan Plan: Impression Severe obstructive sleep apnea with an AHI of 52, currently on CPAP therapy at a pressure of 12 cm of water. Treatment is successful and adjustments need to be made to eliminate the leaks. Hypersomnia, recovered and the patient's upper score is down to 0 Obesity BPH Osteoarthritis Plan Continue CPAP therapy the same level of pressure of 12 cm of water Educated the patient on achieving a better mask seal while using the air such. Facemask large size Extubated to humidification chamber and set the setting into auto Extubated exhalation pressure release and EPR level at 3 Continue using the heated hose and climate line Encourage weight loss We'll continue to follow
== END ==
LOC: SLEEP 13:58
PROVIDERS: ATTEND Internal Medicine Critical Care Medicine
DX: G47.33 Obstructive sleep apnea (adult) (pediatric) (principal); Z99.89 Dependence on other enabling machines and devices; E66.9 Obesity, unspecified; M19.90 Unspecified osteoarthritis, unspecified site; N40.0 Benign prostatic hyperplasia without lower urinary tract symptoms; Z88.8 Allergy status to other drugs, medicaments and biological substances; Z87.891 Personal history of nicotine dependence

== ENCOUNTER → 2022-01-19 | Outpatient (CLI) | payer MEDICARE ==
[2022-01-19 13:08] VITALS: BP 158/84; PULSE 102; RESP 16; TEMP 98.1; BMI 38.7
== END | disposition home or self-care (01) ==
LOC: BARWHC3 12:53
PROVIDERS: ATTEND Surgery
DX: Z53.9 Procedure and treatment not carried out, unspecified reason (principal)
CPT/HCPCS: 99211

== ENCOUNTER 2022-03-12 18:49 | Inpatient (IN) | payer MEDICARE ==
--- NOTE | 2022-03-12 19:32 | ED ---
Arrhythmia/Palpitations HPI - General Chief Complaint: Arrhythmia/Palpitations Stated Complaint: SOB Time Seen by Provider: 03/12/22 18:50 Source: patient, RN/MD, EMS, RN notes reviewed Mode of arrival: EMS Limitations: no limitations - History of Present Illness Initial Comments: 71-year-old male with a history of hypertension but no prior history of known heart disease who went to [facility] today after starting to develop shortness of breath and some anterior chest and upper back pain. He was found at that time to be in ventricular tachycardia. He apparently maintained consciousness and was given sedation and cardioverted with 200 J. He states he had a similar episode yesterday without the pain and then last week proximal T7 days ago and also a similar episode lasting for a period time but without the pain. He did have diaphoresis and felt very fatigued last week as well as yesterday and prior to his treatment today. He was transferred here for further evaluation and treatment by cardiology. He's had no further symptoms he denied any palpitations at the time of the incident. No other current complaints modifying factors he did have a troponin level of 0.04 at the other facility. MD Complaint: rapid heart beat - Related Data Home Medications Medication Instructions Recorded Confirmed Levocetirizine Dihydrochloride 5 mg PO HS 02/10/18 03/12/22 [Xyzal] buPROPion HCL [Wellbutrin XL] 300 mg PO DAILY 02/10/18 03/12/22 Gabapentin [Neurontin] 600 mg PO HS 01/20/19 03/12/22 Doxylamine Succinate [Unisom] 25 mg PO HS 03/12/22 03/12/22 Losartan Potassium [Cozaar] 100 mg PO HS 03/12/22 03/12/22 Montelukast Sodium [Singulair] 10 mg PO HS 03/12/22 03/12/22 Multivitamins, Thera [Multivitamin 1 tab PO DAILY 03/12/22 03/12/22 (formulary)] Zolpidem Tartrate [Ambien] 5 mg PO HS 03/12/22 03/12/22 busPIRone HCL 15 mg PO BID 03/12/22 03/12/22 Allergies Allergy/AdvReac Type Severity Reaction Status Date / Time baclofen Allergy Nausea Verified 03/12/22 19:53 Latex, Natural Rubber Allergy Rash/Hives Verified 03/12/22 19:53 Review of Systems ROS Statement: Those systems with pertinent positive or pertinent negative responses have been documented in the HPI. ROS Other: All systems not noted in ROS Statement are negative. Past Medical History Past Medical History: Hypertension, Renal Disease, Sleep Apnea/CPAP/BIPAP Additional Past Medical History / Comment(s): Uses CPAP. Hx kidney stone. 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 History of Any Multi-Drug Resistant Organisms: None Reported Past Surgical History: Hernia Repair, Joint Replacement, Orthopedic Surgery, Tonsillectomy Additional Past Surgical History / Comment(s): Right knee replacement, hernia repair X2, cervical fusion C4 and C5, C5 and C6. RT CTR, RT ELBOW RELEASE Past Anesthesia/Blood Transfusion Reactions: No Reported Reaction Past Psychological History: Depression Smoking Status: Former smoker Past Alcohol Use History: None Reported Past Drug Use History: None Reported - Past Family History Sister(s) Family Medical History: Cancer, Myocardial Infarction ([place]) Additional Family Medical History / Comment(s): Breast cancer. General Exam - General Exam Comments Initial Comments: This is a well-developed well-nourished awake alert oriented 4 male Limitations: no limitations General appearance: alert, in no apparent distress Head exam: Present: atraumatic, normocephalic, normal inspection Eye exam: Present: normal appearance, PERRL, EOMI. Absent: scleral icterus, conjunctival injection, periorbital swelling ENT exam: Present: normal exam, mucous membranes moist Neck exam: Present: normal inspection, full ROM, other (No stridor JVD or bruits). Absent: tenderness, meningismus, lymphadenopathy Respiratory exam: Present: normal lung sounds bilaterally. Absent: respiratory distress, wheezes, rales, rhonchi, stridor Cardiovascular Exam: Present: regular rate, normal rhythm, normal heart sounds. Absent: systolic murmur, diastolic murmur, rubs, gallop, clicks GI/Abdominal exam: Present: soft, normal bowel sounds. Absent: distended, tenderness, guarding, rebound, rigid Extremities exam: Present: normal inspection, full ROM, normal capillary refill. Absent: tenderness, pedal edema, joint swelling, calf tenderness Back exam: Present: normal inspection Neurological exam: Present: alert, oriented X3, CN II-XII intact Psychiatric exam: Present: normal affect, normal mood Skin exam: Present: warm, dry, intact, normal color. Absent: rash Course Vital Signs 03/12/22 18:54 Temperature 98.6 F Pulse Rate 91 Respiratory 19 Rate Blood Pressure 157/102 O2 Sat by Pulse 99 Oximetry - Reevaluation(s) Reevaluation #1: 03/12/22 19:33 CD sent with the patient did not render any imaging. I did review all of the material sent from [facility]. This did include the rhythm strip before during and after the cardioversion. Reevaluation #2: 03/12/22 20:43 Patient has no further activity at this time I did discuss case with Dr. Olivares EKG Findings - EKG Results: EKG: interpreted by TRAN (EKG done on arrival interpreted by me showed a heart rate of 88 WV interval 210 QRS duration 109 QT since QTC 376/421 left exodeviation low QRS voltage and complete right bundle-branch block. Additionally some nonspecific anterior changes. This is consistent with the postconversion EKG done at [facility]) Medical Decision Making - Lab Data Lab Results 03/12/22 Range/Units 19:16 Troponin I 2.130 H* (0.000-0.034) ng/mL - Radiology Data Interpreted by me: I did review the chest x-ray no evidence of acute processes seen. Critical Care Time Critical Care Time: Yes Total Critical Care Time: 31 Critical Care Time: Critical care time includes initial presentation with history physical labs x- rays repeated reevaluation patient review charting from the sending facility discussed with the main physician admission orders and documentation the above Disposition Clinical Impression: Ventricular tachycardia, Non-STEMI (non-ST elevated myocardial infarction) Disposition: ADMITTED IP TO THIS HOSP Condition: Fair Referrals: Abdon Prado DO [Primary Care Provider] - 1-2 days Decision Date: 03/12/22 Decision Time: 20:43
--- NOTE | 2022-03-12 19:55 | XR ---
EXAMINATION TYPE: XR chest 2V DATE OF EXAM: 03/12/2022 COMPARISON: 03/12/2022 INDICATION: Chest pain TECHNIQUE: Frontal and lateral views of the chest are obtained. FINDINGS: The heart size is normal. The pulmonary vasculature is normal. The lungs are clear. Spondylosis in the thoracic spine. IMPRESSION: 1. No acute pulmonary process.
[2022-03-12] MEDS ORDERED: HEPARIN SODIUM 1,000 UN/ML (10ML VL) IV PRN (20:41)
[2022-03-12] MEDS ORDERED: HEPARIN SODIUM 1,000 UN/ML (10ML VL) IV ONE (20:41)
[2022-03-12] MEDS ORDERED: NITROGLYCERIN SL TABS 0.4 MG TAB SUBLINGUAL PRN (20:44)
[2022-03-12] MEDS ORDERED: ACETAMINOPHEN TAB 325 MG TAB PO PRN (20:44)
[2022-03-12] MEDS ORDERED: HEPARIN SOD,PORK IN 0.45% NACL 25,000 UNIT in 0.45% NACL 1 250ML.BAG IV SCH (20:45)
[2022-03-12 21:34] LABS: Basophils # (A) 0.1 k/uL (0-0.2); Basophils % (A) 1 %; Eosinophils # (A) 0.2 k/uL (0-0.7); Eosinophils % (A) 3 %; HCT 43.8 % (39.0-53.0); HGB 15.1 gm/dL (13.0-17.5); Lymphocytes # (A) 2.1 k/uL (1.0-4.8); Lymphocytes % (A) 28 %; MCH 35.2 pg (25.0-35.0); MCHC 34.6 g/dL (31.0-37.0); MCV 101.6 fL (80.0-100.0); Mean Platelet Volume 8.3; Monocytes # (A) 0.4 k/uL (0-1.0); Monocytes % (A) 6 %; Neutrophils # (A) 4.5 k/uL (1.3-7.7); Neutrophils % (A) 60 %; Platelet Count 212 k/uL (150-450); RDW 12.5 % (11.5-15.5); WBC 7.4 k/uL (3.8-10.6)
[2022-03-12 21:56] LABS: Prothrombin Time 10.9 sec (9.0-12.0)
[2022-03-12 22:00] LABS: Partial Thromboplastin Time 21.2 sec (22.0-30.0)
[2022-03-12] MEDS: GABAPENTIN 300 MG CAP PO SCH (22:31)
[2022-03-12] MEDS: METOPROLOL TARTRATE 25 MG TAB PO SCH (22:31)
[2022-03-12] MEDS: busPIRone HCl 5 MG TAB PO SCH (22:31)
[2022-03-12] MEDS: LOSARTAN 50 MG TAB PO SCH (22:31)
[2022-03-12] MEDS: MONTELUKAST 10 MG TAB PO SCH (22:31)
[2022-03-12] MEDS: ZOLPIDEM 5 MG TAB PO SCH (22:31)
[2022-03-12] MEDS: LORATADINE 10 MG TAB PO SCH (22:37)
[2022-03-12] MEDS: PATIENT'S OWN (Doxylamine Succinate [Unisom] 25 MG Tablet) PO SCH (22:38)
[2022-03-12] MEDS: SODIUM CHLORIDE 0.9% 1,000 ML IV SCH (22:38)
--- NOTE | 2022-03-13 04:12 | P.HPIM ---
History of Present Illness H&P Date: 03/12/22 Chief Complaint: SOB , chest pain 71 year old male with hypertension patient is a transfer from [facility] for cardiology evaluation . patient has been experiencing episodes of profuse sweating , and exertional dyspnea with mild to moderate exertion , especially over the past 1 week, which he describes is very unusual for him. he has never been as fatigued as he has been over the past week. he denies any recent travel, nausea or vomiting, denies any hospital stay , or history of blood clots. denies any fever, chills, cough, abd pain , or GI bleeding upon evaluation at [facility] he was found in V tach, and was sedated and shocked with 200 j. since then he converted into NSR patient transferred to our facility for cardiology follow up he currently feels back to normal , denies any chest pain or trouble breathing. workup in the ED showed elevated trops he denies tobacco smoking, illicit drugs or heavy alcohol Review of Systems Pertinent positives as noted in HPI. All other systems were reviewed and are negative Past Medical History Past Medical History: Hypertension, Renal Disease, Sleep Apnea/CPAP/BIPAP Additional Past Medical History / Comment(s): Uses CPAP. Hx kidney stone. 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 History of Any Multi-Drug Resistant Organisms: None Reported Past Surgical History: Hernia Repair, Joint Replacement, Orthopedic Surgery, Tonsillectomy Additional Past Surgical History / Comment(s): Right knee replacement, hernia repair X2, cervical fusion C4 and C5, C5 and C6. RT CTR, RT ELBOW RELEASE Past Anesthesia/Blood Transfusion Reactions: No Reported Reaction Past Psychological History: Depression Smoking Status: Former smoker Past Alcohol Use History: None Reported Past Drug Use History: None Reported - Past Family History Sister(s) Family Medical History: Cancer, Myocardial Infarction ([place]) Additional Family Medical History / Comment(s): Breast cancer. Medications and Allergies Home Medications Medication Instructions Recorded Confirmed Type Levocetirizine Dihydrochloride 5 mg PO HS 02/10/18 03/12/22 History [Xyzal] buPROPion HCL [Wellbutrin XL] 300 mg PO DAILY 02/10/18 03/12/22 History Gabapentin [Neurontin] 600 mg PO HS 01/20/19 03/12/22 History Doxylamine Succinate [Unisom] 25 mg PO HS 03/12/22 03/12/22 History Losartan Potassium [Cozaar] 100 mg PO HS 03/12/22 03/12/22 History Montelukast Sodium [Singulair] 10 mg PO HS 03/12/22 03/12/22 History Multivitamins, Thera [Multivitamin 1 tab PO DAILY 03/12/22 03/12/22 History (formulary)] Zolpidem Tartrate [Ambien] 5 mg PO HS 03/12/22 03/12/22 History busPIRone HCL 15 mg PO BID 03/12/22 03/12/22 History Allergies Allergy/AdvReac Type Severity Reaction Status Date / Time baclofen Allergy Nausea Verified 03/12/22 19:53 Latex, Natural Rubber Allergy Rash/Hives Verified 03/12/22 19:53 Physical Exam Vitals: Vital Signs Temp Pulse Pulse Resp BP BP Pulse Ox 03/13/22 01:44 63 16 108/76 97 03/13/22 01:00 63 14 119/78 98 03/12/22 23:00 84 14 150/112 97 03/12/22 22:00 89 14 151/104 98 03/12/22 21:20 86 12 157/102 98 03/12/22 18:54 98.6 F 91 19 157/102 99 Intake and Output 03/12/22 03/12/22 03/13/22 14:59 22:59 06:59 Other: Weight 131.542 kg Constitutional: No acute distress, conversant, pleasant Eyes: Anicteric sclerae, moist conjunctiva, Pupils equal round reactive to light ENMT: NC/AT Oropharynx clear, no erythema, or exudates Neck: Supple, no masses, or JVD No carotid bruits No thyromegaly Lungs: Clear to auscultation Clear to percussion Normal respiratory effort, no accessory muscle use Cardiovascular: Heart regular in rate and rhythm, No murmurs, gallops, or rubs No peripheral edema Abdominal: Soft Nontender, no guarding, rebound or rigidity Abdomen moving with respiration Normoactive bowel sounds No hepatomegaly, No splenomegaly No palpable mass No abdominal wall hernia noted Skin: Normal temperature, tone, texture, turgor No induration No subcutaneous nodules No rash, lesions No ulcers Extremities: No digital cyanosis No clubbing Pedal pulses intact and symmetrical Radial pulses intact and symmetrical No calf tenderness Psychiatric: Alert and oriented to person, place and time Appropriate affect fair judgement Neuro Muscles Strength 5/5 in all 4 extremities Sensation to light touch grossly present throughout Cranial nerves II-XII grossly intact Lymphatics: no palpable cervical or supraclavicular lymph nodes Results CBC & Chem 7: 03/12/22 21:20 Labs: Abnormal Lab Results - Last 24 Hours (Table) 03/12/22 03/12/22 03/12/22 Range/Units 19:16 21:20 21:20 MCV 101.6 H (80.0-100.0) fL MCH 35.2 H (25.0-35.0) pg APTT 21.2 L (22.0-30.0) sec Troponin I 2.130 H* (0.000-0.034) ng/mL 03/12/22 03/13/22 03/13/22 Range/Units 22:24 02:13 02:13 MCV (80.0-100.0) fL MCH (25.0-35.0) pg APTT 35.6 H (22.0-30.0) sec Troponin I 3.790 H* 3.780 H* (0.000-0.034) ng/mL Assessment and Plan Assessment: Ventricular tachycardia s/p cardioversion at [facility] 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
[2022-03-13 06:25] LABS: Basophils # (A) 0.1 k/uL (0-0.2); Basophils % (A) 1 %; Eosinophils # (A) 0.3 k/uL (0-0.7); Eosinophils % (A) 4 %; HCT 41.9 % (39.0-53.0); HGB 13.9 gm/dL (13.0-17.5); Lymphocytes # (A) 2.1 k/uL (1.0-4.8); Lymphocytes % (A) 30 %; MCH 34.8 pg (25.0-35.0); MCHC 33.2 g/dL (31.0-37.0); Macrocytosis Slight; Mean Platelet Volume 8.5; Monocytes # (A) 0.6 k/uL (0-1.0); Monocytes % (A) 9 %; Neutrophils # (A) 3.8 k/uL (1.3-7.7); Neutrophils % (A) 53 %; Platelet Count 216 k/uL (150-450); RBC 3.99 m/uL (4.30-5.90); RDW 12.6 % (11.5-15.5); WBC 7.2 k/uL (3.8-10.6)
[2022-03-13] MEDS ORDERED: HEPARIN SODIUM,PORCINE 2,500 UNIT in SODIUM CHLORIDE 0.9% 250 ML IRRIGATION PRN (07:00)
[2022-03-13] MEDS ORDERED: HEPARIN SODIUM,PORCINE 10,000 UNIT in SODIUM CHLORIDE 0.9% 1,000 ML IRRIGATION PRN (07:00)
[2022-03-13 07:24] LABS: INR 1.1 (<1.2); Partial Thromboplastin Time 62.2 sec (22.0-30.0); Prothrombin Time 11.7 sec (9.0-12.0)
[2022-03-13] MEDS ORDERED: ASPIRIN 325 MG TAB PO SCH (09:00)
[2022-03-13] MEDS: MULTIVITAMINS, THERA 1 EACH TAB PO SCH (09:17)
[2022-03-13] MEDS: ATORVASTATIN 80 MG TAB PO SCH (09:17)
[2022-03-13] MEDS: busPIRone HCl 5 MG TAB PO SCH ×2 (09:17→21:06)
[2022-03-13] MEDS: buPROPion XL 300 MG TAB.ER.24H PO SCH (09:17)
[2022-03-13] MEDS: METOPROLOL TARTRATE 25 MG TAB PO SCH ×2 (09:17→21:06)
[2022-03-13] MEDS ORDERED: ASPIRIN 325 MG TAB PO STA ×2 (11:05→11:24)
[2022-03-13] MEDS ORDERED: ALPRAZolam 0.5 MG TAB PO PRN ×2 (11:05→11:24)
[2022-03-13] MEDS ORDERED: ALPRAZolam 0.25 MG TAB PO PRN ×2 (11:05→11:24)
[2022-03-13] MEDS ORDERED: ATORVASTATIN 80 MG TAB PO STA ×2 (11:05→11:24)
[2022-03-13] MEDS ORDERED: NITROGLYCERIN SL TABS 0.4 MG TAB SUBLINGUAL PRN ×3 (11:05→13:37)
--- NOTE | 2022-03-13 11:11 | P.CRDCN ---
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 He has a history of hypertension, obesity, prior nicotine dependence quit 37 years ago, and family history of CAD with a sister who had CAD with stenting in her early 60s as well as a brother. He presented to the emergency department at [facility] with complaints of shortness of breath, extreme fatigue, diaphoresis and chest and upper back discomfort as well as lower jaw pain. Apparently had a similar episode a little over a week ago except no chest pain at that time. He was out feeding his birds when he developed shortness of breath became very sweaty and very fatigued with lower jaw pain and subsequently developed some chest and upper back discomfort. He apparently went in the house and entered his symptoms into [employer]. which alerted him to go to the emergency department as he was likely having a heart attack. Upon presentation to the emergency room at [facility] the patient was found to be in ventricular tachycardia and he was subsequently cardioverted. Troponin level there was 0.04. He was subsequently transferred here for further cardiac evaluation. He's been maintaining sinus mechanism. Troponins here have been elevated at 2.13, 3.79 and 3.78. Labs at [place] showed a creatinine of 1.2. He has been initiated on IV heparin. Vital signs have been stable. At home he has not been very active. He used to be quite active going to the gym regularly up until about 9 years ago when he moved and was not in close proximity to a gym. Since that time he gained weight he had gastric sleeve done about 2 years ago and initially lost 80 pounds however gain ed most of that. He has been having intermittent jaw pain over the last 4 months at times related to activity and other times random. He denies any palpitations, dizziness or lightheadedness. He does have a history of obstructive sleep apnea and uses his CPAP regularly. Denies any complaints of orthopnea or PND. Past Medical History Past Medical History: Hypertension, Renal Disease, Sleep Apnea/CPAP/BIPAP Additional Past Medical History / Comment(s): Uses CPAP. Hx kidney stone. 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 History of Any Multi-Drug Resistant Organisms: None Reported Past Surgical History: Hernia Repair, Joint Replacement, Orthopedic Surgery, Tonsillectomy Additional Past Surgical History / Comment(s): Right knee replacement, hernia repair X2, cervical fusion C4 and C5, C5 and C6. RT CTR, RT ELBOW RELEASE Past Anesthesia/Blood Transfusion Reactions: No Reported Reaction Past Psychological History: Depression Smoking Status: Former smoker Past Alcohol Use History: None Reported Additional Past Alcohol Use History / Comment(s): Quit smoking 1986 Past Drug Use History: None Reported - Past Family History Sister(s) Family Medical History: Cancer, Myocardial Infarction ([place]) Additional Family Medical History / Comment(s): Breast cancer. Medications and Allergies Home Medications Medication Instructions Recorded Confirmed Type Levocetirizine Dihydrochloride 5 mg PO HS 02/10/18 03/12/22 History [Xyzal] buPROPion HCL [Wellbutrin XL] 300 mg PO DAILY 02/10/18 03/12/22 History Gabapentin [Neurontin] 600 mg PO HS 01/20/19 03/12/22 History Doxylamine Succinate [Unisom] 25 mg PO HS 03/12/22 03/12/22 History Losartan Potassium [Cozaar] 100 mg PO HS 03/12/22 03/12/22 History Montelukast Sodium [Singulair] 10 mg PO HS 03/12/22 03/12/22 History Multivitamins, Thera [Multivitamin 1 tab PO DAILY 03/12/22 03/12/22 History (formulary)] Zolpidem Tartrate [Ambien] 5 mg PO HS 03/12/22 03/12/22 History busPIRone HCL 15 mg PO BID 03/12/22 03/12/22 History Allergies Allergy/AdvReac Type Severity Reaction Status Date / Time baclofen Allergy Nausea Verified 03/12/22 19:53 Latex, Natural Rubber Allergy Rash/Hives Verified 03/12/22 19:53 Physical Exam Vitals: Vital Signs Temp Pulse Pulse Resp BP BP Pulse Ox 03/13/22 09:15 98.3 F 66 18 124/86 100 03/13/22 04:00 71 19 107/78 91 L 03/13/22 01:44 63 16 108/76 97 03/13/22 01:00 63 14 119/78 98 03/12/22 23:00 84 14 150/112 97 03/12/22 22:00 89 14 151/104 98 03/12/22 21:20 86 12 157/102 98 03/12/22 18:54 98.6 F 91 19 157/102 99 Intake and Output 03/12/22 03/13/22 03/13/22 22:59 06:59 14:59 Intake Total 278.816 Balance 278.816 Intake: Intake, IV Titration 278.816 Amount Heparin Sod,Pork in 0.45% 58.816 NaCl 25,000 unit In 0.45 % NaCl 1 250ml.bag @ 7.6 UNITS/KG/HR 9.997 mls/hr IV .Q24H [facility] Rx#: [id number] Sodium Chloride 0.9% 1, 220 000 ml @ 20 mls/hr IV . Q24H [facility]ELAND Rx#:[id number] Other: Weight 131.542 kg 131.542 kg PHYSICAL EXAMINATION: This is a 71-year-old male in no apparent distress at the time of my examination. HEENT: Head is atraumatic, normocephalic. Pupils are equal, round. Sclerae anicteric. Conjunctivae are clear. Mucous membranes of the mouth are moist. Neck is supple. There is no elevated jugular venous pressure. No carotid bruit is heard. CHEST EXAMINATION: Clear to auscultation bilaterally. No wheezes rales or rhonchi. Respirations even and nonlabored. HEART EXAMINATION: Heart regular, positive S1 and S2. No S3. No S4. No clicks, rubs or murmurs. ABDOMEN: Soft, obese, nontender. Bowel sounds are heard. No organomegaly noted. EXTREMITIES: 2+ peripheral pulses with evidence of trace peripheral edema and no calf tenderness noted. NEUROLOGIC EXAMINATION: Patient is awake, alert and oriented x3. Results 03/13/22 05:26 Cardiac Enzymes 03/12/22 03/12/22 03/13/22 Range/Units 19:16 22:24 02:13 Troponin I 2.130 H* 3.790 H* 3.780 H* (0.000-0.034) ng/mL Coagulation 1203/13/22 03/13/22 Range/Units 21:20 02:13 05:26 PT 10.9 11.7 (9.0-12.0) sec APTT 21.2 L 35.6 H 62.2 H (22.0-30.0) sec CBC 03/12/22 03/13/22 Range/Units 21:20 05:26 WBC 7.4 7.2 (3.8-10.6) k/uL RBC 4.30 3.99 L (4.30-5.90) m/uL Hgb 15.1 13.9 (13.0-17.5) gm/dL Hct 43.8 41.9 (39.0-53.0) % Plt Count 212 216 (150-450) k/uL Current Medications Generic Name Dose Route Start Last Admin Trade Name Freq PRN Reason Stop Dose Admin Acetaminophen 650 mg 03/12/22 20:44 Acetaminophen Tab 325 Mg Tab PO Q4HR PRN Pain Aspirin 325 mg 03/13/22 09:00 03/13/22 09:17 Aspirin 325 Mg Tab PO 325 mg DAILY LELAND Administration Atorvastatin Calcium 80 mg 03/13/22 09:00 03/13/22 09:17 Atorvastatin 80 Mg Tab PO 80 mg DAILY LELAND Administration Bupropion HCl 300 mg 03/13/22 09:00 03/13/22 09:17 Bupropion Xl 300 Mg Tab.Er.24h PO 300 mg DAILY LELAND Administration Buspirone HCl 15 mg 03/12/22 21:00 03/13/22 09:17 Buspirone Hcl 5 Mg Tab PO 15 mg BID LELAND Administration Gabapentin 600 mg 03/12/22 21:00 03/12/22 22:31 Gabapentin 300 Mg Cap PO 600 mg HS LELAND Administration Heparin Sodium (Porcine) 0 unit 03/12/22 20:41 03/13/22 04:06 Heparin Sodium 1,000 Un/Ml (10ml Vl) IV 3,288 unit PER PROTOCOL PRN Administration Low PTT Protocol Heparin Sodium/Sodium Chloride 250 mls @ 9.997 mls/hr 03/12/22 20:45 03/13/22 04:10 25,000 unit/ Sodium Chloride IV 9.6 units/kg/hr .Q24H LELAND 12.628 mls/hr Titration Protocol 7.6 UNITS/KG/HR Sodium Chloride 1,000 mls @ 20 mls/hr 03/12/22 20:45 03/12/22 22:38 Saline 0.9% IV 20 mls/hr .Q24H LELAND Administration Loratadine 10 mg 03/12/22 21:00 03/12/22 22:37 Loratadine 10 Mg Tab PO 10 mg HS LELAND Administration Losartan Potassium 100 mg 03/12/22 21:00 03/12/22 22:31 Losartan 50 Mg Tab PO 100 mg HS LELAND Administration Metoprolol Tartrate 25 mg 03/12/22 21:00 03/13/22 09:17 Metoprolol Tartrate 25 Mg Tab PO 25 mg BID LELAND Administration Montelukast Sodium 10 mg 03/12/22 21:00 03/12/22 22:31 Montelukast 10 Mg Tab PO 10 mg HS LELAND Administration Multivitamins 1 each 03/13/22 09:00 03/13/22 09:17 Multivitamins, Thera 1 Each Tab PO 1 each DAILY LELAND Administration Nitroglycerin 0.4 mg 03/12/22 20:44 Nitroglycerin Sl Tabs 0.4 Mg Tab SUBLINGUAL Q5M PRN Chest Pain Patient's Own ( 25 mg 03/12/22 21:00 03/12/22 22:38 Doxylamine Succinate PO Not Given [Unisom] 25 Mg HS LELAND Tablet) Zolpidem Tartrate 5 mg 03/12/22 21:00 03/12/22 22:31 Zolpidem 5 Mg Tab PO 5 mg HS LELAND Administration Intake and Output 03/12/22 03/13/22 03/13/22 22:59 06:59 14:59 Intake Total 278.816 Balance 278.816 Intake: Intake, IV Titration 278.816 Amount Heparin Sod,Pork in 0.45% 58.816 NaCl 25,000 unit In 0.45 % NaCl 1 250ml.bag @ 7.6 UNITS/KG/HR 9.997 mls/hr IV .Q24H [facility]AND Rx#: [id number] Sodium Chloride 0.9% 1, 220 000 ml @ 20 mls/hr IV . Q24H [facility]AND Rx#:[id number] Other: Weight 131.542 kg 131.542 kg Patient Weight 03/14/22 06:59 Weight 131.542 kg 03/13/22 05:26 Assessment and Plan Assessment: #1 nonsustained ventricular tachycardia, status post cardioversion #2 hypertension #3 obesity #4 obstructive sleep apnea Plan: From cardiology perspective we'll obtain a 2-D echo with Doppler study to assess cardiac structure and function. We are recommending the patient undergo cardiac catheterization today. The risks, benefits and alternative therapies for the above-mentioned procedure and for both sedation/analgesia as well as necessary blood product administration, if indicated, have been discussed with the patient. The patient has indicated understanding and acceptance of the risks and procedures discussed. Questions have been answered appropriately and he is agreeable to move forward with the above stated procedure. Further recommendations to follow depending on patient's clinical course and diagnostic findings. MEAT CURER note has been reviewed, I agree with a documented findings and plan of care. Patient was seen and examined.
[2022-03-13] MEDS ORDERED: fentaNYL (PF) 50 MCG/ML 2 ML AMP ONE (11:48)
[2022-03-13] MEDS ORDERED: fentaNYL (PF) 50 MCG/1 ML VIAL IVP ONE (12:00)
[2022-03-13] MEDS ORDERED: IV FLUID CONTINUATION 1,000 ML IV ONE (12:00)
[2022-03-13] MEDS ORDERED: LIDOCAINE 1% INJ 10MG/ML (5 ML VIAL-PF) SQ ONE (12:01)
[2022-03-13] MEDS ORDERED: VERAPAMIL SYRINGE (5 MG/10 ML) INTRAARTER ONE (12:04)
[2022-03-13] MEDS: MIDAZOLAM 2 MG/2 ML VIAL IVP ONE ×2 (12:06→13:03)
[2022-03-13] MEDS: HEPARIN SODIUM 1,000 UN/ML (10ML VL) IV ONE ×3 (12:12→13:28)
[2022-03-13] MEDS ORDERED: PRASUGREL 10 MG TAB ONE (12:12)
[2022-03-13] MEDS ORDERED: PRASUGREL 10 MG TAB PO ONE (12:15)
[2022-03-13 12:22] LABS: Chol/HDL Ratio 3.42 Ratio; LDL Cholesterol,Calculated 113.4 mg/dL (0.0-131.0)
[2022-03-13] MEDS: NITROGLYCERIN 1000MCG/10ML SYRINGE INTRACORON ONE ×3 (12:32→13:07)
[2022-03-13] MEDS ORDERED: IOPAMIDOL-370 125ML BTL INJ ONE ×3 (12:32)
[2022-03-13] MEDS ORDERED: IOPAMIDOL-370 100ML BTL INJ ONE ×2 (13:04→13:25)
[2022-03-13] MEDS ORDERED: ATROPINE SULFATE 0.1 MG/ML 10ML SYRINGE IV PRN (13:37)
[2022-03-13] MEDS ORDERED: RX INFO: IV CONTRAST WAS GIVEN 1 EACH MISC MISCELLANE PRN (13:37)
[2022-03-13] MEDS ORDERED: ZOLPIDEM 5 MG TAB PO PRN (13:37)
[2022-03-13] MEDS ORDERED: MAG HYDROX/AL HYDROX/SIMETH 30 ML CUP PO PRN (13:37)
[2022-03-13] MEDS ORDERED: SODIUM CHLORIDE 0.9% 1,000 ML in EMPTY BAG 1 BAG IV SCH (13:45)
--- NOTE | 2022-03-13 13:51 | P.CARDCATH ---
Date of Procedure: 03/13/22 Description of Procedure: Cardiac Catheterization: The patient is a 71-year-old male with no prior documented history of CAD who presented to [facility] with jaw, chest discomfort and dyspnea was found to be in ventricular tachycardia and underwent cardioversion subsequently transferred. He had mild troponin elevation but no significant EKG changes. Recommendations were made regarding cardiac catheterization, the risks and the complications were discussed with the patient who is in full understanding and agreement. 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 Using Xylocaine Anesthesia and Seldinger technique, a 6-[place] sheath was introduced in the right radial artery . Subsequently, selective coronary angiography was performed using a 5-[place]ankan 3.5 bend left Cata and 5 bend right Cata catheter. Multiple views of the coronary artery including hemiaxial views were obtained. The 5-[place] Pigtail catheter was used to cross the aortic valve and LVEDP was calculated. Following that a 6-[place] EBU 3.75 guiding catheter was introduced into system and after cannulating the left main a 0.014 BMW J-wire was positioned in the distal LAD. Subsequently a 3.0 x 12 mm Treck balloon was advanced and multiple inflation at 8 negro were done. Following that an [place] IVUS catheter was introduced and images were obtained. After removing the catheter a 4.0 x 33 mm Xience Carolyn point stent was advanced and deployed at 16 negro, following that a repeat intravascular ultrasound imaging was performed and a 5.0 x 20 mm NC Treck balloon was advanced and multiple inflation at 10 negro were done, after removing the balloon images were obtained and revealed stable successful stenting. At that time a 0.014 whisper J-wire was advanced across the proximal circumflex and positioned in the distal OM with the help of a super cross microcatheter. Subsequently the wire was exchanged to a 0.014 BMW J-wire. Following that the 2.25 x 12 mm Treck was advanced and inflation were done. After removing the balloon a 2.5 x 23 mm Xience Carolyn point stent was deployed at 14 negro, after removing the balloon repeat intravascular ultrasound was performed and subsequently a 3.0 x 20 mm NC Treck balloon was advanced and one inflation at 12 negro was done. After restoring the balloon images were obtained and revealed stable successful stenting. Following that, catheter and sheath were removed. Hemostasis was obtained with deployment of TR band . There was no immediate complication. Patient was returned to room in stable condition. Of note, the patient received a total of 7500 units of intravenous heparin as well as intra- arterial verapamil. He received a loading dose of Effient, his ACT was monitored. He had chest discomfort and EKG changes with the inflations that resolved at the end of the procedure. Findings: Left main: This is a vessel, bifurcating into LAD and left circumflex, left main has 10-20% plaque stenosis in the midsegment with no high-grade stenosis LAD: This is a large size vessel, reaching to the apex with a wraparound the apex segment, giving rise to 2 that. After the takeoff of the first diagonal branch there is an eccentric 70% plaque, at the takeoff of the second diagonal branch there is 99% stenosis, progressive the vessel has no high-grade stenosis Left circumflex: This is a nondominant vessel, giving rise to 2 obtuse marginal branch, after the takeoff of the first obtuse marginal branch prior to the takeoff of the second obtuse marginal branch there is 99% stenosis with slow flow in the distal vessel RCA: This is a dominant vessel large in caliber bifurcating into PDA and PLV. The PLV has 2 branches the first one has a 70% stenosis, it is small in caliber. Left Ventriculogram: Not performed Hemodynamics: There is no gradient across the aortic valve , LVEDP was 15-18 mmHg Conclusion: 1. Critical stenosis in the proximal LAD 2. Critical stenosis in the proximal left circumflex 3. Severe stenosis in the PLV 4. Successful stenting of the proximal LAD with reduction of stenosis from 99% to 0% with intravascular ultrasound guidance 5. Successful stenting of the proximal left circumflex with reduction of st enosis from 99% to 0% with intravascular ultrasound guidance Recommendations: The patient will continue on aspirin and Effient for 1 year without any disruption in addition to aggressive coronary risks modifications. The findings and the recommendations were discussed with the patient and he is in full understanding and agreement. Duration of sedation is 85 minutes.
--- NOTE | 2022-03-13 14:47 | P.PN ---
Subjective Progress Note Date: 03/13/22 Patient says that for the past 3 weeks she has been having jaw pain with exertion. Patient thought it was due to tooth extraction which he had recently. Patient currently denying any chest pain or lightheadedness or diaphoresis. Patient was seen by cardiology this morning and had a left heart catheterization with PCI. Objective - Vital Signs Vital signs: Vital Signs Temp 98.3 F 03/13/22 09:15 Pulse 59 L 03/13/22 11:07 Resp 18 03/13/22 11:07 BP 132/91 03/13/22 11:07 Pulse Ox 99 03/13/22 11:07 FiO2 Intake & Output 03/12/22 03/13/22 03/13/22 18:59 06:59 18:59 Intake Total 278.816 150 Balance 278.816 150 Weight 131.542 kg 131.542 kg Intake: IV 150 Intake, IV Titration 278.816 Amount Heparin Sod,Pork in 0.45% 58.816 NaCl 25,000 unit In 0.45 % NaCl 1 250ml.bag @ 7.6 UNITS/KG/HR 9.997 mls/hr IV .Q24H [facility] Rx#: [id number] Sodium Chloride 0.9% 1, 220 000 ml @ 20 mls/hr IV . 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 Psych - Calm and cooperative - Labs CBC & Chem 7: 03/13/22 05:26 Labs: Abnormal Lab Results - Last 24 Hours (Table) 03/12/22 03/12/22 03/12/22 Range/Units 19:16 21:20 21:20 RBC (4.30-5.90) m/uL MCV 101.6 H (80.0-100.0) fL MCH 35.2 H (25.0-35.0) pg APTT 21.2 L (22.0-30.0) sec Troponin I 2.130 H* (0.000-0.034) ng/mL 03/12/22 03/13/22 03/13/22 Range/Units 22:24 02:13 02:13 RBC (4.30-5.90) m/uL MCV (80.0-100.0) fL MCH (25.0-35.0) pg APTT 35.6 H (22.0-30.0) sec Troponin I 3.790 H* 3.780 H* (0.000-0.034) ng/mL 03/13/22 03/13/22 Range/Units 05:26 05:26 RBC 3.99 L (4.30-5.90) m/uL MCV 105.0 H (80.0-100.0) fL MCH (25.0-35.0) pg APTT 62.2 H (22.0-30.0) sec Troponin I (0.000-0.034) ng/mL Assessment and Plan Assessment: Ventricular tachycardia status post cardioversion at outside hospital Patient currently in normal sinus rhythm Awaiting for further recommendations from cardiology regarding defibrillator Non-ST elevation RI Status post left heart catheterization with PCI to proximal LDL and left circumflex Heparin drip discontinued Patient started on aspirin and Effient Echocardiogram pending Cardiology on board Hyperlipidemia Resume statin Anxiety and depression Resume Wellbutrin and BuSpar Hypertension Resume losartan and metoprolol Anticipate patient be ready for discharge tomorrow if cleared by cardiology and cardiology does not recommend any defibrillator.
--- NOTE | 2022-03-13 17:24 | CA ---
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 tach status post cardioversion Cardiac Hx: Technical Quality: Technically difficult study Contrast 1: Lumason Total Dose (mL): 5 Contrast 2: Total Dose (mL): MEASUREMENTS (Male / Female) Normal Values 2D ECHO LV Diastolic Diameter PLAX 4.7 cm 4.2 - 5.9 / 3.9 - 5.3 cm LV Systolic Diameter PLAX 3.9 cm IVS Diastolic Thickness 1.3 cm 0.6 - 1.0 / 0.6 - 0.9 cm LVPW Diastolic Thickness 1.3 cm 0.6 - 1.0 / 0.6 - 0.9 cm LV Relative Wall Thickness 0.6 RV Internal Dim ED PLAX 4.1 cm LV Diastolic Volume MOD BP 134.6 cm??? 67 - 155 / 56 - 104 cm??? LV Systolic Volume MOD BP 75.9 cm??? 22 - 58 / 19 - 49 cm??? LV Ejection Fraction MOD BP 43.6 % >= 55 % LV Cardiac Index MOD BP 1238.8 cm???/min???m??? LV Diastolic Volume MOD 4C 135.1 cm??? LV Systolic Volume MOD 4C 65.5 cm??? LV Ejection Fraction MOD 4C 51.5 % LV Cardiac Index MOD 4C 1469.5 cm???/min???m??? LV Diastolic Length 4C 7.3 cm LV Systolic Length 4C 6.3 cm LV Diastolic Volume MOD 2C 124.6 cm??? LV Systolic Volume MOD 2C 81.4 cm??? LV Ejection Fraction MOD 2C 34.7 % LV Cardiac Index MOD 2C 911.8 cm???/min???m??? LV Diastolic Length 2C 6.7 cm LV Systolic Length 2C 6.8 cm LA Volume 113.2 cm??? 18 - 58 / 22 - 52 cm??? M-MODE Aortic Root Diameter MM 3.2 cm LA Systolic Diameter MM 5.2 cm LA Ao Ratio MM 1.6 AV Cusp Separation MM 2.3 cm DOPPLER AV Peak Velocity 137.1 cm/s AV Peak Gradient 7.5 mmHg AV Mean Velocity 95.4 cm/s AV Mean Gradient 4.1 mmHg AV Velocity Time Integral 27.2 cm LVOT Peak Velocity 58.0 cm/s LVOT Peak Gradient 1.3 mmHg TR Peak Velocity 199.4 cm/s TR Peak Gradient 15.9 mmHg Right Ventricular Systolic Press 18.9 mmHg FINDINGS Left Ventricle Mildly increased septal wall thickness. Moderately increased left ventricular systolic volume. Moderately decreased left ventricular ejection fraction. Left ventricular ejection fraction is estimated at 45 %. Right Ventricle Moderate to severe right ventricular dilatation. Right ventricular systolic pressure within normal limits. Right Atrium Moderate to severe right atrial dilatation. Left Atrium Severely increased left atrial volume. Mitral Valve Structurally normal mitral valve. Mild mitral regurgitation. Aortic Valve Trileaflet aortic valve. No aortic valve stenosis or regurgitation. Tricuspid Valve Mild tricuspid regurgitation. Pulmonic Valve Trace pulmonic regurgitation. Pericardium No pericardial effusion. Aorta Normal size aortic root and proximal ascending aorta. CONCLUSIONS Mild LV systolic dysfunction Left atrial enlargement Right atrial enlargement Dilated right ventricle Mild mitral regurgitation Previewed by: Dr. Brian Valentin MD (Electronically Signed) Final Date: 13 March 2022 17:23
[2022-03-13] MEDS: MONTELUKAST 10 MG TAB PO SCH (21:06)
[2022-03-13] MEDS: LORATADINE 10 MG TAB PO SCH (21:06)
[2022-03-13] MEDS: LOSARTAN 50 MG TAB PO SCH (21:06)
[2022-03-13] MEDS: GABAPENTIN 300 MG CAP PO SCH (21:06)
[2022-03-13] MEDS: PATIENT'S OWN (Doxylamine Succinate [Unisom] 25 MG Tablet) PO SCH (21:41)
[2022-03-13] MEDS: SODIUM CHLORIDE 0.9% 1,000 ML IV SCH (21:41)
[2022-03-13] MEDS: ZOLPIDEM 5 MG TAB PO SCH (23:00)
[2022-03-14] MEDS ORDERED: HEPARIN SODIUM,PORCINE 10,000 UNIT in SODIUM CHLORIDE 0.9% 1,000 ML IRRIGATION PRN (07:00)
[2022-03-14] MEDS ORDERED: HEPARIN SODIUM,PORCINE 2,500 UNIT in SODIUM CHLORIDE 0.9% 250 ML IRRIGATION PRN (07:00)
[2022-03-14 08:20] VITALS: BMI 38.2
[2022-03-14] MEDS: ASPIRIN 81 MG PO SCH (08:33)
[2022-03-14] MEDS: METOPROLOL TARTRATE 25 MG TAB PO SCH ×2 (08:33→21:00)
[2022-03-14] MEDS: busPIRone HCl 5 MG TAB PO SCH ×2 (08:33→20:59)
[2022-03-14] MEDS: buPROPion XL 300 MG TAB.ER.24H PO SCH (08:33)
[2022-03-14] MEDS: PRASUGREL 10 MG TAB PO SCH (08:33)
[2022-03-14] MEDS: ATORVASTATIN 80 MG TAB PO SCH (08:34)
[2022-03-14] MEDS: MULTIVITAMINS, THERA 1 EACH TAB PO SCH (08:34)
[2022-03-14 10:13] LABS: Basophils % (A) 1 %; Eosinophils # (A) 0.2 k/uL (0-0.7); Eosinophils % (A) 4 %; HCT 38.6 % (39.0-53.0); HGB 12.9 gm/dL (13.0-17.5); Lymphocytes # (A) 1.5 k/uL (1.0-4.8); Lymphocytes % (A) 24 %; MCH 35.3 pg (25.0-35.0); MCHC 33.4 g/dL (31.0-37.0); MCV 105.5 fL (80.0-100.0); Macrocytosis Slight; Mean Platelet Volume 8.6; Monocytes # (A) 0.4 k/uL (0-1.0); Monocytes % (A) 6 %; Neutrophils # (A) 3.8 k/uL (1.3-7.7); Neutrophils % (A) 64 %; Platelet Count 144 k/uL (150-450); RBC 3.66 m/uL (4.30-5.90); RDW 12.5 % (11.5-15.5)
[2022-03-14 10:17] LABS: African American GFR (CKD) >90 (>60 ml/min/1.73 sqM); Anion Gap 5 mmol/L; Blood Urea Nitrogen 19 mg/dL (9-20); Calcium 8.1 mg/dL (8.4-10.2); Carbon Dioxide 26 mmol/L (22-30); Chloride 109 mmol/L (98-107); Glucose 247 mg/dL (74-99); Non-African American GFR(CKD) 85 (>60 ml/min/1.73 sqM); Sodium 140 mmol/L (137-145)
--- NOTE | 2022-03-14 10:19 | P.PN ---
Subjective Progress Note Date: 03/14/22 Patient this was complaining of some chest discomfort. Otherwise he has no acute complaints. 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 Psych - Calm and cooperative - Labs CBC & Chem 7: 03/14/22 09:12 03/14/22 09:12 Labs: Abnormal Lab Results - Last 24 Hours (Table) 03/14/22 03/14/22 Range/Units 09:12 09:12 RBC 3.66 L (4.30-5.90) m/uL Hgb 12.9 L (13.0-17.5) gm/dL Hct 38.6 L (39.0-53.0) % MCV 105.5 H (80.0-100.0) fL MCH 35.3 H (25.0-35.0) pg Plt Count 144 L (150-450) k/uL Chloride 109 H (98-107) mmol/L Glucose 247 H (74-99) mg/dL Calcium 8.1 L (8.4-10.2) mg/dL Assessment and Plan Assessment: Ventricular tachycardia status post cardioversion at outside hospital Patient currently in normal sinus rhythm Awaiting for further recommendations from cardiology regarding defibrillator Non-ST elevation AK Status post left heart catheterization with PCI to proximal LDL and left circumflex Heparin drip discontinued Patient started on aspirin and Effient Echocardiogram shows normal LV Cardiology on board Hyperlipidemia Resume statin Anxiety and depression Resume Wellbutrin and BuSpar Hypertension Resume losartan and metoprolol Awaiting for cardiology to clear patient for discharge.
--- NOTE | 2022-03-14 12:27 | P.PN ---
Subjective Progress Note Date: 03/14/22 PROGRESS NOTE The patient is a 71 old male who presented to [facility] sustained ventricular tachycardia, underwent cardioversion. He had evidence of non-STEMI. He has been complaining of chest discomfort for the last few days prior to admission. He underwent cardiac catheterization and was found to have critical stenosis involving the proximal and mid LAD as well as the left circumflex, he had moderate significant disease in a branch of the PLV. He underwent stenting of the LAD and left circumflex. His echocardiogram showed an ejection fraction of 45% with dilatation of the right ventricle. He's feeling better today, he has no significant chest discomfort. He had mild discomfort earlier but that resolved. His breathing is stable. He is in sinus mechanism and denies any dizziness or palpitations. Medications: Aspirin, Effient 10 mg daily, Lipitor 80 mg daily, losartan 100 mg daily, metoprolol 25 mg twice a day, Singulair PHYSICAL EXAMINATION: Blood pressure 128/80 heart rate 60 LUNGS: Clear to auscultation HEART: Regular rate and rhythm, S1, S2. No S3. No systolic murmur ABDOMEN: Soft, nontender, no organomegaly EXTREMETIES: No edema, right radial pulse intact LAB: Hemoglobin 12.9, potassium 4.0, BUN 19, creatinine 0.89 IMPRESSION: 1. Status post non-STEMI with stenting of the LAD and left circumflex 2. Sustained ventricular tachycardia in the setting of an acute myocardial infarction 3. History of hypertension 4. Hyperlipidemia 5. Dilated right ventricle of unknown etiology PLAN: 1. Increase physical activity 2. Continue telemetry 3. Follow renal functions 4. Add Aldactone 5. If stable probable discharge in 24-48 hours Objective - Vital Signs Vital signs: Vital Signs Temp 97.9 F 03/14/22 08:32 Pulse 71 03/14/22 08:32 Resp 18 03/14/22 08:32 BP 145/69 03/14/22 08:32 Pulse Ox 96 03/14/22 08:32 FiO2 Intake & Output 03/13/22 03/14/22 03/14/22 18:59 06:59 18:59 Intake Total 268 118 Output Total 300 Balance 268 -300 118 Weight 131.542 kg 131.542 kg Intake: IV 150 Oral 118 118 Output: Urine 300 Other: Voiding Method Urinal Urinal Urinal # Voids 2 - Labs CBC & Chem 7: 03/14/22 09:12 03/14/22 09:12 Labs: Abnormal Lab Results - Last 24 Hours (Table) 03/14/22 03/14/22 Range/Units 09:12 09:12 RBC 3.66 L (4.30-5.90) m/uL Hgb 12.9 L (13.0-17.5) gm/dL Hct 38.6 L (39.0-53.0) % MCV 105.5 H (80.0-100.0) fL MCH 35.3 H (25.0-35.0) pg Plt Count 144 L (150-450) k/uL Chloride 109 H (98-107) mmol/L Glucose 247 H (74-99) mg/dL Calcium 8.1 L (8.4-10.2) mg/dL
[2022-03-14] MEDS: SPIRONOLACTONE 25 MG TAB PO SCH (16:36)
[2022-03-14] MEDS: ZOLPIDEM 5 MG TAB PO SCH (21:00)
[2022-03-14] MEDS: LOSARTAN 50 MG TAB PO SCH (21:00)
[2022-03-14] MEDS: MONTELUKAST 10 MG TAB PO SCH (21:00)
[2022-03-14] MEDS: GABAPENTIN 300 MG CAP PO SCH (21:00)
[2022-03-14] MEDS: SODIUM CHLORIDE 0.9% 1,000 ML IV SCH (21:00)
[2022-03-14] MEDS: LORATADINE 10 MG TAB PO SCH (21:00)
[2022-03-14] MEDS: PATIENT'S OWN (Doxylamine Succinate [Unisom] 25 MG Tablet) PO SCH (21:00)
[2022-03-15] MEDS: SPIRONOLACTONE 25 MG TAB PO SCH (08:44)
[2022-03-15] MEDS: ATORVASTATIN 80 MG TAB PO SCH (08:45)
[2022-03-15] MEDS: buPROPion XL 300 MG TAB.ER.24H PO SCH (08:45)
[2022-03-15] MEDS: MULTIVITAMINS, THERA 1 EACH TAB PO SCH (08:45)
[2022-03-15] MEDS: busPIRone HCl 5 MG TAB PO SCH ×2 (08:45→20:48)
[2022-03-15] MEDS: PRASUGREL 10 MG TAB PO SCH (08:45)
[2022-03-15] MEDS: METOPROLOL TARTRATE 25 MG TAB PO SCH ×2 (08:45→20:47)
[2022-03-15] MEDS: ASPIRIN 81 MG PO SCH (08:45)
[2022-03-15 10:23] LABS: African American GFR (CKD) >90 (>60 ml/min/1.73 sqM); Anion Gap 5 mmol/L; Blood Urea Nitrogen 14 mg/dL (9-20); Calcium 8.6 mg/dL (8.4-10.2); Carbon Dioxide 26 mmol/L (22-30); Chloride 109 mmol/L (98-107); Glucose 128 mg/dL (74-99); Non-African American GFR(CKD) 82 (>60 ml/min/1.73 sqM); Potassium 4.2 mmol/L (3.5-5.1); Sodium 140 mmol/L (137-145)
--- NOTE | 2022-03-15 16:03 | P.PN ---
Subjective Progress Note Date: 03/15/22 PROGRESS NOTE The patient is a 71 old male who presented to [facility] sustained ventricular tachycardia, underwent cardioversion. He had evidence of non-STEMI. He has been complaining of chest discomfort for the last few days prior to admission. He underwent cardiac catheterization and was found to have critical stenosis involving the proximal and mid LAD as well as the left circumflex, he had moderate significant disease in a branch of the PLV. He underwent stenting of the LAD and left circumflex. His echocardiogram showed an ejection fraction of 45% with dilatation of the right ventricle. He's feeling better today, he has no significant chest discomfort. He had mild discomfort earlier but that resolved. His breathing is stable. He is in sinus mechanism and denies any dizziness or palpitations. March 15: He's feeling better today, he has no anginal symptoms. He is ambulating without difficulty. He continues to be in sinus mechanism. Hemodynamically stable. Medications: Aspirin, Effient 10 mg daily, Lipitor 80 mg daily, losartan 100 mg daily, metoprolol 25 mg twice a day, Singulair, Aldactone 25 mg daily PHYSICAL EXAMINATION: Blood pressure 124/60 heart rate 60 LUNGS: Clear to auscultation HEART: Regular rate and rhythm, S1, S2. No S3. No systolic murmur ABDOMEN: Soft, nontender, no organomegaly EXTREMETIES: No edema, LAB: potassium 4.2, BUN 14, creatinine 0.9 to IMPRESSION: 1. Status post non-STEMI with stenting of the LAD and left circumflex 2. Sustained ventricular tachycardia in the setting of an acute myocardial infarction 3. History of hypertension 4. Hyperlipidemia 5. Dilated right ventricle of unknown etiology PLAN: 1. Increase physical activity 2. Continue telemetry 3. Follow renal functions 4. Review echocardiogram 5. If stable probable discharge home in the morning. Objective - Vital Signs Vital signs: Vital Signs Temp 97.9 F 03/15/22 12:30 Pulse 53 L 03/15/22 12:30 Resp 18 03/15/22 12:30 BP 124/60 03/15/22 12:30 Pulse Ox 96 03/15/22 12:30 FiO2 Intake & Output 03/14/22 03/15/22 03/15/22 18:59 06:59 18:59 Intake Total 478 240 Balance 478 240 Weight 131.542 kg Intake: Oral 478 240 Other: Voiding Method Urinal Urinal Urinal # Voids 2 1 - Labs CBC & Chem 7: 03/14/22 09:12 03/15/22 09:41 Labs: Abnormal Lab Results - Last 24 Hours (Table) 03/15/22 Range/Units 09:41 Chloride 109 H (98-107) mmol/L Glucose 128 H (74-99) mg/dL
--- NOTE | 2022-03-15 17:01 | P.PN ---
Subjective Progress Note Date: 03/15/22 Patient says that he still has some chest discomfort. He has not to be in any distress. Patient denies any lightheadedness or diaphoresis. 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 Psych - Calm and cooperative - Labs CBC & Chem 7: 03/14/22 09:12 03/15/22 09:41 Labs: Abnormal Lab Results - Last 24 Hours (Table) 03/15/22 Range/Units 09:41 Chloride 109 H (98-107) mmol/L Glucose 128 H (74-99) mg/dL Assessment and Plan Assessment: Ventricular tachycardia status post cardioversion at outside hospital Patient currently in normal sinus rhythm Per cardiology likely due to coronary artery disease Non-ST elevation NM Cardiomyopathy Status post left heart catheterization with PCI to proximal LDL and left circumflex Heparin drip discontinued Patient started on aspirin and Effient and atorvastatin Echocardiogram shows EF of 45% Patient started on spironolactone Cardiology on board Hyperlipidemia Resume statin Anxiety and depression Resume Wellbutrin and BuSpar Hypertension Resume losartan and metoprolol Prediabetic Patient's hemoglobin A1c is 6.2 Patient will need counseling on diabetic diet prior to discharge Awaiting for cardiology to clear patient for discharge. Per cardiology if pat ient is stable tomorrow then probable discharge in the a.m.
[2022-03-15] MEDS: LOSARTAN 50 MG TAB PO SCH (20:47)
[2022-03-15] MEDS: MONTELUKAST 10 MG TAB PO SCH (20:47)
[2022-03-15] MEDS: ZOLPIDEM 5 MG TAB PO SCH (20:48)
[2022-03-15] MEDS: LORATADINE 10 MG TAB PO SCH (20:48)
[2022-03-15] MEDS: GABAPENTIN 300 MG CAP PO SCH (20:48)
[2022-03-15] MEDS: SODIUM CHLORIDE 0.9% 1,000 ML IV SCH (21:04)
[2022-03-15] MEDS: PATIENT'S OWN (Doxylamine Succinate [Unisom] 25 MG Tablet) PO SCH (21:04)
[2022-03-16] MEDS: buPROPion XL 300 MG TAB.ER.24H PO SCH (08:55)
[2022-03-16] MEDS: METOPROLOL TARTRATE 25 MG TAB PO SCH (08:55)
[2022-03-16] MEDS: MULTIVITAMINS, THERA 1 EACH TAB PO SCH (08:55)
[2022-03-16] MEDS: ATORVASTATIN 80 MG TAB PO SCH (08:55)
[2022-03-16] MEDS: busPIRone HCl 5 MG TAB PO SCH (08:55)
[2022-03-16] MEDS: SPIRONOLACTONE 25 MG TAB PO SCH (08:55)
[2022-03-16] MEDS: PRASUGREL 10 MG TAB PO SCH (08:55)
[2022-03-16] MEDS: ASPIRIN 81 MG PO SCH (08:55)
[2022-03-16 09:24] VITALS: RESP 16; TEMP 98.2
--- NOTE | 2022-03-16 09:59 | P.PN ---
Subjective PROGRESS NOTE The patient is a 71 old male who presented to [facility] sustained ventricular tachycardia, underwent cardioversion. He had evidence of non-STEMI. He has been complaining of chest discomfort for the last few days prior to admission. He underwent cardiac catheterization and was found to have critical stenosis involving the proximal and mid LAD as well as the left circumflex, he had moderate significant disease in a branch of the PLV. He underwent stenting of the LAD and left circumflex. His echocardiogram showed an ejection fraction of 45% with dilatation of the right ventricle. He's feeling better today, he chong s no significant chest discomfort. He had mild discomfort earlier but that resolved. His breathing is stable. He is in sinus mechanism and denies any dizziness or palpitations. March 15: He's feeling better today, he has no anginal symptoms. He is ambulating without difficulty. He continues to be in sinus mechanism. Hemodynamically stable. 03/16 Patient seen and examined. Patient denies any chest pain or pressure. Denies any further jaw pain. States was able to walk the halls without difficulty. No significant ventricular ectopy on telemetry. PHYSICAL EXAMINATION: Vitals reveiwed LUNGS: Clear to auscultation HEART: Regular rate and rhythm, S1, S2. No S3. No systolic murmur ABDOMEN: Soft, nontender, no organomegaly EXTREMETIES: No edema, IMPRESSION: 1. Status post non-STEMI with stenting of the LAD and left circumflex 2. Sustained ventricular tachycardia in the setting of an acute myocardial infarction 3. History of hypertension 4. Hyperlipidemia 5. Dilated right ventricle of unknown etiology PLAN: Continue dual antiplatelets and current medical regimen. Patient without any further angina-type symptoms and no significant arrhythmias on telemetry. Appears stable for discharge home. Further workup of right ventricular dilation as an outpatient and may consider right heart catheterization. Objective - Vital Signs Vital signs: Vital Signs Temp 98.2 F 03/16/22 08:00 Pulse 69 03/16/22 08:00 Resp 16 03/16/22 08:00 BP 129/77 03/16/22 08:00 Pulse Ox 97 03/16/22 08:00 FiO2 Intake & Output 03/15/22 03/16/22 03/16/22 18:59 06:59 18:59 Intake Total 240 Balance 240 Intake: Oral 240 Other: Voiding Method Urinal Urinal Toilet # Voids 3 2 - Labs CBC & Chem 7: 03/14/22 09:12 03/15/22 09:41 Labs: Abnormal Lab Results - Last 24 Hours (Table) 03/15/22 Range/Units 09:41 Chloride 109 H (98-107) mmol/L Glucose 128 H (74-99) mg/dL
--- NOTE | 2022-03-16 11:36 | P.DS ---
Providers Date of admission: 03/12/22 20:44 Expected date of discharge: 03/16/22 Attending physician: Sirena Whyte MD Consults: 03/12/22 20:44 Consult Physician Urgent Consulting Provider: rBian Valentin Consult Reason/Comments: Ventricular tachycardia status post cardioversion, NSTEMI Do you want consulting provider notified?: Already Contacted 03/13/22 13:37 Consult Physician Routine Consulting Provider: [facility] Consult Reason/Comments: Post Interventional Patient Do you want consulting provider notified?: Already Contacted Primary care physician: [facility] Course: Patient's a 71-year-old male with PMH of hypertension initially presented to [facility] for chest pain and shortness of breath, found to have ventricular tachycardia which required cardioversion, subsequently transferred to [facility] for further management and workup. Troponins were found to be elevated at 2.13, 3.79 and 3.78. He underwent cardiac catheterization which showed critical stenosis of the proximal LAD, proximal left circumflex and PLV. He underwent successful stenting of the proximal LAD and proximal left circumflex. He had no further episodes of ventricular tachycardia during this hospitalization. Echocardiogram showed EF of 45%, moderate to severe right atrial and ventricular dilatation with mild mitral regurgitation. He was started on aspirin, Effient, metoprolol, Lipitor and Aldactone. He was continued on losartan. Patient was seen and examined this morning. No acute events overnight. Patient reports no chest pain. He denies any shortness of breath, palpitations or lightheadedness. He is able to ambulate without difficulties. Case was discussed with Dr. Driscoll who cleared the patient for discharge. Pertinent studies include chest x-ray, echocardiogram. Pertinent procedures include cardiac catheterization. General: non toxic, no distress, appears at stated age Derm: warm, dry Head: atraumatic, normocephalic, symmetric Eyes: EOMI, no lid lag, anicteric sclera Mouth: no lip lesion, mucus membranes moist Cardiovascular: S1S2 reg, no murmur Lungs: CTA bilateral, no rhonchi, no rales , no accessory muscle use Ext: no gross muscle atrophy, no edema, no contractures Neuro: no focal neuro deficits Psych: Alert, oriented, appropriate affect Discharge diagnosis: #Ventricular tachycardia status post cardioversion at outside hospital #Non-ST elevation AR #Cardiomyopathy #Hyperlipidemia #Anxiety and depression #Hypertension #Prediabetic Patient will be discharged home with the following instructions: Follow up with your PCP within 1-2 days of discharge. Follow-up with cardiology within 1 week of discharge. Take all medications as advised. Come back to the ED for worsening chest pain, shortness breath, palpitations or lightheadedness. This complex discharge took 37 minutes to complete. Patient Condition at Discharge: Stable Plan - Discharge Summary Discharge Rx Participant: No New Discharge Prescriptions: New Spironolactone [Aldactone] 25 mg PO DAILY #30 tab Prasugrel [Effient] 10 mg PO DAILY #30 tab Atorvastatin [Lipitor] 80 mg PO DAILY #30 tab Metoprolol Tartrate [Lopressor] 25 mg PO BID #60 tab Aspirin 81 mg PO DAILY #30 tab Nitroglycerin Sl Tabs [Nitrostat] 0.4 mg SUBLINGUAL Q5M PRN #30 tab PRN Reason: Chest Pain Continue buPROPion HCL [Wellbutrin XL] 300 mg PO DAILY Levocetirizine Dihydrochloride [Xyzal] 5 mg PO HS Gabapentin [Neurontin] 600 mg PO HS Multivitamins, Thera [Multivitamin (formulary)] 1 tab PO DAILY Zolpidem Tartrate [Ambien] 5 mg PO HS Losartan Potassium [Cozaar] 100 mg PO HS Doxylamine Succinate [Unisom] 25 mg PO HS Montelukast Sodium [Singulair] 10 mg PO HS busPIRone HCL 15 mg PO BID Discharge Medication List Levocetirizine Dihydrochloride [Xyzal] 5 mg PO HS 02/10/18 [History] buPROPion HCL [Wellbutrin XL] 300 mg PO DAILY 02/10/18 [History] Gabapentin [Neurontin] 600 mg PO HS 01/20/19 [History] Doxylamine Succinate [Unisom] 25 mg PO HS 03/12/22 [History] Losartan Potassium [Cozaar] 100 mg PO HS 03/12/22 [History] Montelukast Sodium [Singulair] 10 mg PO HS 03/12/22 [History] Multivitamins, Thera [Multivitamin (formulary)] 1 tab PO DAILY 03/12/22 [History] Zolpidem Tartrate [Ambien] 5 mg PO HS 03/12/22 [History] busPIRone HCL 15 mg PO BID 03/12/22 [History] Aspirin 81 mg PO DAILY #30 tab 03/16/22 [Rx] Atorvastatin [Lipitor] 80 mg PO DAILY #30 tab 03/16/22 [Rx] Metoprolol Tartrate [Lopressor] 25 mg PO BID #60 tab 03/16/22 [Rx] Nitroglycerin Sl Tabs [Nitrostat] 0.4 mg SUBLINGUAL Q5M PRN #30 tab 03/16/22 [R x] Prasugrel [Effient] 10 mg PO DAILY #30 tab 03/16/22 [Rx] Spironolactone [Aldactone] 25 mg PO DAILY #30 tab 03/16/22 [Rx] Follow up Appointment(s)/Referral(s): Timmy Boston MD [STAFF PHYSICIAN] - 1 Week Abdon Prado DO [Primary Care Provider] - 1-2 days Patient Instructions/Handouts: *Surgery [facility] - After Heart Catheterization - Bakery Assistant Instructions, Heart Attack (DC), Chest Pain (DC), Cardiac Rehabilitation (DC), After Radial Heart Catheterization (GEN) Activity/Diet/Wound Care/Special Instructions: Follow up with your PCP within 1-2 days of discharge. Follow-up with cardiology within 1 week of discharge. Take all medications as advised. Come back to the ED for worsening chest pain, shortness breath, palpitations or lightheadedness. Discharge Disposition: HOME SELF-CARE
[2022-03-16 11:52] VITALS: BP 118/79; PULSE 63
== END 2022-03-16 13:05 | disposition home or self-care (01) | DRG 246 ==
LOC: EC 18:49 → 3SCARD 20:44
PROVIDERS: ADMIT Internal Medicine; ATTEND Internal Medicine
PROC: B2111ZZ Fluoroscopy of Multiple Coronary Arteries using Low Osmolar Contrast (ICD-10-PCS; principal; 2022-03-13 11:55)
PROC: 4A023N7 Measurement of Cardiac Sampling and Pressure, Left Heart, Percutaneous Approach (ICD-10-PCS; principal; 2022-03-13 11:55)
PROC: 027135Z Dilation of Coronary Artery, Two Arteries with Two Drug-eluting Intraluminal Devices, Percutaneous Approach (ICD-10-PCS; principal; 2022-03-13 11:55)
DX: I47.20 Ventricular tachycardia, unspecified (principal); I21.4 Non-ST elevation (NSTEMI) myocardial infarction; I42.9 Cardiomyopathy, unspecified; E66.9 Obesity, unspecified; Z68.38 Body mass index [BMI] 38.0-38.9, adult; E78.5 Hyperlipidemia, unspecified; F32.A Depression, unspecified; Z96.651 Presence of right artificial knee joint; F41.9 Anxiety disorder, unspecified; I34.0 Nonrheumatic mitral (valve) insufficiency; G47.33 Obstructive sleep apnea (adult) (pediatric); I10 Essential (primary) hypertension; I25.10 Atherosclerotic heart disease of native coronary artery without angina pectoris; I25.2 Old myocardial infarction; R73.03 Prediabetes; Z79.899 Other long term (current) drug therapy; Z82.49 Family history of ischemic heart disease and other diseases of the circulatory system; Z87.442 Personal history of urinary calculi; Z87.891 Personal history of nicotine dependence; N28.89 Other specified disorders of kidney and ureter; Z71.3 Dietary counseling and surveillance; Z88.8 Allergy status to other drugs, medicaments and biological substances; Z91.040 Latex allergy status; Z98.1 Arthrodesis status
CPT/HCPCS: 36415; 71046; 80048; 80061; 84443; 84484; 85025; 85610; 85730; 92978; 92979; 93005; 93306; 93458; 94760; 96365; 96366; 99291

== ENCOUNTER → 2022-08-10 | Outpatient (CLI) | payer MEDICARE ==
[2022-08-10 13:26] VITALS: BP 104/68; PULSE 60; TEMP 97.3; BMI 39.4
--- NOTE | 2022-09-01 11:34 | P.HPBAR ---
Bariatric H&P - History & Physicial H&P Date: 08/10/22 History & Physicial: Visit/CC: bariatric F/U Patient initial contact: Initial weight: 165.561 kg Initial weight in pounds: 365.00 Height: 6 ft 1 in Initial BMI: 48.1 Last weight: Current weight: 135.624 kg Current weight in pounds: 299.00 Current BMI: 39.4 [place] body weight (based on NIH guidelines): 83.461 kg Excess body weight loss: 36.4% The patient is a 72 year-old M who presents for Bariatric Assessment. This is a 72-year-old male presents today for bariatric follow-up. His weight is remain stable. His gained 2 pounds since last visit. He has some complaints of mild GERD. 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 RT CTR, RT ELBOW RELEASE.,. laparascopic sleeve gastrectomy (11/2019 Dr Henley)., colonoscopies /polyp., heart cath with 2 stents (Feb 2022), RU and cardioversion 2022 Past Anesthesia/Blood Transfusion Reactions: No Reported Reaction Date of Last Stent Placement:: February 2022 Past Psychological History: Depression Smoking Status: Former smoker Past Alcohol Use History: None Reported Additional Past Alcohol Use History / Comment(s): Quit smoking 1986, hx of 1 ppd Past Drug Use History: None Reported - Past Family History Sister(s) Family Medical History: Cancer, Myocardial Infarction ([place]) Additional Family Medical History / Comment(s): Breast cancer. Surgical - Exam Vital Signs Temp Pulse BP 97.3 F L 60 104/68 08/10/22 13:16 08/10/22 13:16 08/10/22 13:16 - General well developed, well nourished, no distress - Eyes PERRL - ENT normal pinna - Neck no masses - Respiratory normal expansion - Cardiovascular Rhythm: regular - Abdomen Abdomen: soft, non tender Bariatric Assessment & Plan Plan: Patiently remained stable. His GERD is minimal will be observed. He'll follow- up in 4 weeks. Bariatric Checklist Checklist: Plan: Checklist: EGD: 1. Hiatal hernia: 2. H. Pylori: HgbA1c: Vitamin D: Smoking: Former smoker Primary care physician referral: Dr Cifuentes Psychiatry clearance: Cardiology clearance: Sleep study: Diet journal: VTE risk score: VTE risk level: Rehab needs at discharge:
== END ==
LOC: BARWHC3 13:02
PROVIDERS: ATTEND Surgery
DX: E66.01 Morbid (severe) obesity due to excess calories (principal); Z68.39 Body mass index [BMI] 39.0-39.9, adult; I48.0 Paroxysmal atrial fibrillation; I25.10 Atherosclerotic heart disease of native coronary artery without angina pectoris; I10 Essential (primary) hypertension; I25.2 Old myocardial infarction; Z98.84 Bariatric surgery status; K21.9 Gastro-esophageal reflux disease without esophagitis; Z87.891 Personal history of nicotine dependence; Z88.8 Allergy status to other drugs, medicaments and biological substances; Z91.040 Latex allergy status; Z79.899 Other long term (current) drug therapy
CPT/HCPCS: 99211

== ENCOUNTER → 2022-09-05 | Outpatient (CLI) | payer MEDICARE ==
[2022-09-06 08:17] LABS: ALT 22 U/L (10-49); AST 24 U/L (14-35); Albumin 4.1 d/dL (3.8-4.9); Albumin/Globulin Ratio 1.46 Ratio (1.60-3.17); Alkaline Phosphatase 69 U/L (41-126); BUN/Creat Ratio 23.73 Ratio (12.00-20.00); Blood Urea Nitrogen 26.1 mg/dL (9.0-27.0); Calcium 9.9 mg/dL (8.7-10.3); Carbon Dioxide 27.1 mmol/L (21.6-31.8); Chloride 107 mmol/L (96-109); Chol/HDL Ratio 2.17 Ratio; Globulin 2.8 d/dL (1.6-3.3); Glucose 118 mg/dL (70-110); LDL Cholesterol,Calculated 56.7 mg/dL (0.0-131.0); Potassium 4.9 mmol/L (3.5-5.5); Sodium 143 mmol/L (135-145); Total Bilirubin 0.3 mg/dL (0.3-1.2); Total Protein 6.9 d/dL (6.2-8.2)
== END | disposition home or self-care (01) ==
LOC: LABWHC1 11:56
PROVIDERS: ATTEND Internal Medicine Interventional Cardiology
DX: E78.2 Mixed hyperlipidemia (principal)
CPT/HCPCS: 36415; 80053; 80061

== ENCOUNTER → 2022-12-25 | Day surgery (SDC) | payer MEDICARE ==
[~2022-12-25] MED LIST changes: -DEXAMETHASONE SOD PHOSPHATE 10 MG/ML 1 ML VIAL IV ONE; -ENOXAPARIN 40 MG/0.4 ML SYRINGE SQ ONE; +LACTATED RINGERS 1,000 ML IV SCH; +LIDOCAINE 1% (10MG/ML) FOR IV START INTRADERMA PRN; +LIDOCAINE 2% INJ 20 MG/ML (2 ML VIAL) ONE; -MIDAZOLAM 2 MG/2 ML VIAL IV PRN; -ONDANSETRON 4 MG/2 ML VIAL IVP ONE; +ONDANSETRON 4 MG/2 ML VIAL IVP PRN; +PROPOFOL 10 MG/ML 20 ML VIAL IV ONE; -ceFAZolin 3 GM in SODIUM CHLORIDE 0.9% 100 ML IVPB ONE
[2022-12-25 12:16] VITALS: TEMP 97
--- NOTE | 2022-12-25 13:03 | P.PCN ---
Date of Procedure: 12/25/22 Procedure(s) Performed: Brief history: Patient is a pleasant 72-year-old white male scheduled for an elective upper endoscopy as well as colonoscopy as a part of evaluation of iron deficiency anemia. Patient states that he was noted to have a hemoglobin of 8 g/dL. He was on Xarelto for A. fib but this was discontinued a few months ago after he had ablation for A. fib done. Since then his hemoglobin has been improving in the last 1 month ago was 11 g/dL. Procedure performed: Esophagogastroduodenoscopy with biopsy Colonoscopy Preoperative diagnosis: Iron deficiency anemia Anesthesia: [facility] [place] Procedure: After informed consent was obtained from the patient was brought into the endoscopy unit and IV sedation was administered by anesthesia under continuous monitoring. Initially upper endoscopy was done. The Olympus GF 160 video endoscope was inserted inserted into the mouth and esophagus intubated without any difficulty and was gradually advanced into the stomach and duodenum and carefully examined. The bulb and second part of the duodenum appeared normal. The scope was then withdrawn into the stomach adequately insufflated with air and upon careful examination the antrum and body, diffuse gastritis and biopsies were done from this area. Mucosa of the cardia and fundus appeared normal. The scope was then withdrawn into the esophagus. The hiatal hernia noted. The GE junction was located at 40 cm to the incisors. It appeared regular with some erythema consistent with LA grade B reflux esophagitis.. Rest of the esophagus appeared normal. Patient tolerated the procedure well. At this time the patient continued to remain sedation. Initial digital rectal examination was normal. Olympus CF 160 video colonoscope was then inserted into the rectum and gradually advanced to the cecum without any difficulty. Careful examination was performed as the scope was gradually being withdrawn. The prep was excellent. The cecum, ascending colon, transverse colon, descending colon, sigmoid colon and rectum appeared normal. Scattered sigmoid diverticulosis. Retroflexion was performed in the rectum and no lesions were noted. Patient tolerated the procedure well. Impression: 1. Upper endoscopy revealed mild diffuse gastritis, small hiatal hernia and LA grade a reflux esophagitis 2. Colonoscopy revealed scattered sigmoid diverticulosis but no evidence of colorectal neoplasia Recommendations: Findings of this examination were discussed with the patient as well as his family. He was advised to follow with the biopsy results. Monitor CBC. Likely. Repeat colonoscopy at age 78.
[2022-12-25 13:26] VITALS: BP 146/88; PULSE 57; RESP 17
== END ==
LOC: ORWHC2ENDO 10:59
PROVIDERS: ATTEND Internal Medicine Gastroenterology
DX: Z12.11 Encounter for screening for malignant neoplasm of colon (principal); K29.50 Unspecified chronic gastritis without bleeding; K21.00 Gastro-esophageal reflux disease with esophagitis, without bleeding; K57.30 Diverticulosis of large intestine without perforation or abscess without bleeding; D50.9 Iron deficiency anemia, unspecified; I48.91 Unspecified atrial fibrillation; K44.9 Diaphragmatic hernia without obstruction or gangrene; I10 Essential (primary) hypertension; Z95.1 Presence of aortocoronary bypass graft; G47.33 Obstructive sleep apnea (adult) (pediatric); K21.9 Gastro-esophageal reflux disease without esophagitis; E78.5 Hyperlipidemia, unspecified; I25.10 Atherosclerotic heart disease of native coronary artery without angina pectoris; Z79.01 Long term (current) use of anticoagulants; Z79.82 Long term (current) use of aspirin; Z79.899 Other long term (current) drug therapy; Z91.040 Latex allergy status
CPT/HCPCS: 88305; 88342; 43239; G0121; J2704; J2001; 45378

== ENCOUNTER → 2023-06-14 | Outpatient (CLI) | payer MEDICARE ==
[2023-06-14 11:09] VITALS: BP 137/83; PULSE 60; TEMP 97.6; BMI 41.6
--- NOTE | 2023-06-14 12:45 | P.HPBAR ---
Bariatric H&P - History & Physicial H&P Date: 06/14/23 History & Physicial: Visit/CC: sleeve F/U Patient initial contact: Initial weight: 165.561 kg Initial weight in pounds: 365.00 Height: 6 ft 1 in Initial BMI: 48.1 Last weight: Current weight: 143.199 kg Current weight in pounds: 315.70 Current BMI: 41.6 [place] body weight (based on NIH guidelines): 83.461 kg Excess body weight loss: 27.2% The patient is a 72 year-old M who presents for Bariatric Assessment. Patient presents today for bariatric assessment. Patient is gained 15 pounds was last visit. He has had minimal GERD. 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 left inguinal hernia now. low Hgb and dark stools. taken off blood thinners 10/28/22. placed on aspirin. Last Myocardial Infarction Date:: February 2022 History of Any Multi-Drug Resistant Organisms: None Reported Past Surgical History: Bariatric Surgery, Heart Catheterization With Stent, Hernia Repair, Joint Replacement, Orthopedic Surgery, Tonsillectomy Additional Past Surgical History / Comment(s): Right knee replacement, hernia repair X2, cervical fusion C4 and C5, C5 and C6. RT CTR, RT ELBOW RELEASE.,. laparascopic sleeve gastrectomy (11/2019 Dr Henley)., colonoscopies /polyp., heart cath with 2 stents (Feb 2022), RU and cardioversion 2022 Past Anesthesia/Blood Transfusion Reactions: No Reported Reaction Additional Past Anesthesia/Blood Transfusion Reaction / Comm: hard iv start, usually have to go to the back of the hand. Date of Last Stent Placement:: February 2022 Past Psychological History: Depression Smoking Status: Former smoker Past Alcohol Use History: Rare Additional Past Alcohol Use History / Comment(s): Quit smoking 1986, hx of 1 ppd Past Drug Use History: None Reported - Past Family History Sister(s) Family Medical History: Cancer, Myocardial Infarction ([place]) Additional Family Medical History / Comment(s): Breast cancer. Surgical - Exam Vital Signs Temp Pulse BP 97.6 F 60 137/83 06/14/23 10:54 06/14/23 10:54 06/14/23 10:54 - Abdomen Abdomen: soft, non tender Bariatric Assessment & Plan Plan: Patient will try improve his dietary choices. His GERD is minimal will be observed. Bariatric Checklist Checklist: Plan: Checklist: EGD: 1. Hiatal hernia: 2. H. Pylori: HgbA1c: Vitamin D: Smoking: Former smoker Primary care physician referral: Dr Cifuentes Psychiatry clearance: Cardiology clearance: Sleep study: Diet journal: VTE risk score: VTE risk level: Rehab needs at discharge:
== END ==
LOC: BARWHC3 10:29
PROVIDERS: ATTEND Surgery
DX: K21.9 Gastro-esophageal reflux disease without esophagitis (principal); E66.01 Morbid (severe) obesity due to excess calories; Z87.891 Personal history of nicotine dependence; Z98.84 Bariatric surgery status; Z91.040 Latex allergy status; Z88.8 Allergy status to other drugs, medicaments and biological substances; Z68.41 Body mass index [BMI] 40.0-44.9, adult
CPT/HCPCS: 99211

== ENCOUNTER → 2023-09-20 | Outpatient (CLI) | payer MEDICARE ==
[2023-09-20 11:21] VITALS: BP 113/78; PULSE 52; RESP 16; TEMP 97.7; BMI 40.1
--- NOTE | 2023-09-20 16:03 | P.HPBAR ---
Bariatric H&P - History & Physicial H&P Date: 09/20/23 History & Physicial: Visit/CC: f/u sleeve Patient initial contact: Initial weight: 165.561 kg Initial weight in pounds: 365.00 Height: 6 ft 1 in Initial BMI: 48.1 Last weight: Current weight: 138.091 kg Current weight in pounds: 304.44 Current BMI: 40.1 [place] body weight (based on NIH guidelines): 83.461 kg Excess body weight loss: 33.4% The patient is a 73 year-old M who presents for Bariatric Assessment.patient is doing well. He presents today for follow-up. He has minimal complaints of pain. He is loss approximately 9 pounds since his last visit. He said some minimal GERD. 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 left inguinal hernia now. low Hgb and dark stools. taken off blood thinners 10/28/22. placed on aspirin. Last Myocardial Infarction Date:: February 2022 History of Any Multi-Drug Resistant Organisms: None Reported Past Surgical History: Bariatric Surgery, Heart Catheterization With Stent, Hernia Repair, Joint Replacement, Orthopedic Surgery, Tonsillectomy Additional Past Surgical History / Comment(s): Right knee replacement, hernia repair X2, cervical fusion C4 and C5, C5 and C6. RT CTR, RT ELBOW RELEASE.,. laparascopic sleeve gastrectomy (11/2019 Dr Henley)., colonoscopies /polyp., heart cath with 2 stents (Feb 2022), RU and cardioversion 2022 Past Anesthesia/Blood Transfusion Reactions: No Reported Reaction Additional Past Anesthesia/Blood Transfusion Reaction / Comm: hard iv start, usually have to go to the back of the hand. Date of Last Stent Placement:: February 2022 Past Psychological History: Depression Smoking Status: Former smoker Past Alcohol Use History: Rare Additional Past Alcohol Use History / Comment(s): Quit smoking 1986, hx of 1 ppd Past Drug Use History: None Reported - Past Family History Sister(s) Family Medical History: Cancer, Myocardial Infarction ([place]) Additional Family Medical History / Comment(s): Breast cancer. Surgical - Exam Vital Signs Temp Pulse Resp BP Pulse Ox 97.7 F 52 L 16 113/78 97 09/20/23 10:15 09/20/23 10:15 09/20/23 10:15 09/20/23 10:15 09/20/23 10:15 - General well developed, well nourished, no distress - Eyes PERRL - ENT normal pinna - Neck no masses - Respiratory normal expansion - Cardiovascular Rhythm: regular - Abdomen Abdomen: soft, non tender Bariatric Assessment & Plan Plan: patient's doing well. His GERD is minimal and will be observed. He'll follow- up in 4 weeks. Bariatric Checklist Checklist: Plan: Checklist: EGD: 1. Hiatal hernia: 2. H. Pylori: HgbA1c: Vitamin D: Smoking: Former smoker Primary care physician referral: Dr Cifuentes Psychiatry clearance: Cardiology clearance: Sleep study: Diet journal: VTE risk score: VTE risk level: Rehab needs at discharge:
== END ==
LOC: BARWHC3 10:20
PROVIDERS: ATTEND Surgery
DX: K21.9 Gastro-esophageal reflux disease without esophagitis (principal); E66.01 Morbid (severe) obesity due to excess calories; Z90.3 Acquired absence of stomach [part of]; Z87.891 Personal history of nicotine dependence; Z68.41 Body mass index [BMI] 40.0-44.9, adult; Z88.8 Allergy status to other drugs, medicaments and biological substances; Z91.040 Latex allergy status; Z09 Encounter for follow-up examination after completed treatment for conditions other than malignant neoplasm
CPT/HCPCS: 99211